=== PATIENT | female | born 1955 | race Caucasian/White ===

== ENCOUNTER → 2018-01-22 07:00 | Outpatient (CLI) | payer OTHER, SELFPAY ==
--- NOTE | 2018-01-22 06:58 | HPBI_ITS ---
MAMMOGRAPHY - BILATERAL SCREENING REASON FOR EXAM: Female, 62 years old. Routine annual screening examination. PERTINENT HISTORY: Non-contributory. TECHNIQUE: Digital bilateral breast qi (3D mammographic acquisition) in the CC and MLO projections. 2-D mediolateral oblique (MLO) and craniocaudad (CC) views of both breasts were obtained. CAD: Full Field Digital Mammography with Computer Added Detection was performed. COMPARISON: Comparison is made with prior abdomen examination dated January 21, 2017. FINDINGS: Breast Composition: There are scattered areas of fibroglandular density. There are no dominant masses or suspicious calcifications. There is a stable 1 cm x 0.9 cm nodule in the retroareolar region of the right breast. There is also evidence of a stable 4.6 mm x 1.2 mm nodule in the upper outer aspect of the right breast. Stable benign-appearing bilateral axillary lymph nodes. No other significant abnormalities are identified. There has been no significant change since the prior study. HPBI/SCREENING MAMM (CAD), BILAT IMPRESSION: Stable bilateral screening mammogram. Yearly follow-up mammogram recommended. (A) ASSESSMENT CATEGORY: BIRADS Category 2: Benign. A letter regarding these results will be sent to the patient by the facility within 30 days. Approximately 10% of breast cancers are not detected by mammography. A normal mammogram should not delay biopsy of a clinically suspicious abnormality. [id number] Electronically Signed: Vin Cota MD at 8:33 EDT Tel [phone], Service support ,
== END ==
PROVIDERS: Visit Provider Nurse Practitioner Women's Health
DX: Z12.31 Encounter for screening mammogram for malignant neoplasm of breast (principal)
CPT/HCPCS: 77063; 77067

== ENCOUNTER → 2018-01-22 15:55 | Outpatient (CLI) | payer OTHER, SELFPAY ==
[2018-01-26 06:23] LABS: HPV APTIMA, High Risk Negative (Negative)
== END ==
PROVIDERS: Visit Provider Nurse Practitioner Women's Health
DX: Z12.4 Encounter for screening for malignant neoplasm of cervix (principal)
CPT/HCPCS: 88175; G0145

== ENCOUNTER → 2019-01-27 07:20 | Outpatient (CLI) | payer OTHER, SELFPAY ==
--- NOTE | 2019-01-27 07:25 | BI_ITS ---
MAMMOGRAPHY - BILATERAL SCREENING 3-D LYNDSAY SYNTHESIS REASON FOR EXAM: Female, 63 years old. Bilateral Screening 3-D tomosynthesis PERTINENT HISTORY: History of benign biopsy in 1999.. TECHNIQUE: 2-D mammograms and 3-D Lyndsay synthesis of the breast (s) were performed. CAD was performed. COMPARISON: January 22, 2018, January 21, 2017 FINDINGS: The breast composition is almost entirely fat. Scattered benign calcifications are seen. There are stable normal-appearing lymph nodes. No dense spiculated masses or suspicious microcalcifications are identified. No architectural distortion is identified. There is no skin thickening or retraction. There has been no significant change since the prior study. BI/SCREENING MAMM (CAD), BILAT IMPRESSION: No mammographic signs of malignancy. Routine yearly mammograms recommended. ASSESSMENT CATEGORY: BIRADS Category 2: Benign. A letter regarding these results will be sent to the patient by the facility within 30 days. FOLLOW UP RECOMMENDATION: Yearly follow up mammogram recommended. (A) Approximately 10% of breast cancers are not detected by mammography. A normal mammogram should not delay biopsy of a clinically suspicious abnormality. Electronically Signed: Stephan Welsh MD at 17:43 EDT , Service support ,
== END ==
PROVIDERS: Visit Provider Nurse Practitioner Women's Health
DX: Z12.31 Encounter for screening mammogram for malignant neoplasm of breast (principal)
CPT/HCPCS: 77063; 77067

== ENCOUNTER → 2019-10-07 10:15 | Outpatient (CLI) | payer OTHER, SELFPAY ==
[2019-10-02 14:27] VITALS: BMI 25.1
[2019-10-07 11:14] LABS: Absolute Lymphocyte Count 2.38 X10^3/uL (0.83-4.51); Absolute Neutrophil Count 3.5 X10^3/uL (2.0-7.7); Basophil# 0.04 X10^3/uL; Basophil% 0.6 % (0-1); Eosinophil# 0.18 X10^3/uL; Eosinophils% 2.7 % (0-5); Hematocrit 43.6 % (37-47); Hemoglobin 14.3 g/dL (12.0-15.0); Lymphocyte # 2.38 X10^3/ul (4.0); Lymphocyte % 35.7 % (19-41); Mean Corp Hgb Conc 32.8 g/dL (32-36); Mean Corpuscular Hgb 29.1 pg (27.0-32.0); Mean Corpuscular Volume 88.6 fL (81-99); Mean Platelet Vol. 9.5 fl (6.2-12.0); Monocyte# 0.52 X10^3/uL; Monocyte% 7.8 % (0-10); NRBC Flagged by Analyzer 0 % (0-5); Neutrophil # 3.52 X10^3/uL (2.7-7.7); Neutrophil % 52.9 % (47-70); Platelet Count 308 K/mm3 (150-450); RBC Distribution Width CV 12.5 % (11.6-14.6); Red Blood Count 4.92 M/mm3 (4.2-5.4); White Blood Count 6.7 K/mm3 (4.4-11.0)
[2019-10-07 11:43] LABS: AST(SGOT) 17 U/L (15-37); Alanine Aminotransfer ALT/SGPT 21 U/L (13-56); Albumin, Serum 3.8 g/dL (3.2-5.0); Alkaline Phosphatase 74 U/L (45-117); Anion Gap 3 (5-15); BUN 15 mg/dL (7-18); BUN/Creat Ratio 19.3 RATIO (10-20); Calcium,Total 8.8 mg/dL (8.5-10.1); Chloride 105 mmol/L (98-107); Cholesterol 171 mg/dL (200); Creatinine, Serum 0.78 mg/dL (0.55-1.02); EST Glomerular Filtration Rate 80 mL/min (>60); Est Glom Filt Rate - Afr Amer 96 mL/min (>60); Globulin 3.7 g/dL (2.2-4.2); Glucose 88 mg/dL (74-106); High Density Lipoprotein 50 mg/dL; Potassium 3.7 mmol/L (3.5-5.1); Protein, Total 7.5 g/dL (6.4-8.2); Sodium Level 140 mmol/L (136-145); Triglycerides 97 mg/dL; Very Low Density Lipoprotein 19 mg/dL (5-40)
== END ==
PROVIDERS: Family Provider Internal Medicine; PCP Internal Medicine; Referring Provider Internal Medicine; Visit Provider Internal Medicine
DX: Z00.00 Encounter for general adult medical examination without abnormal findings (principal)
CPT/HCPCS: 36415; 80053; 80061; 85025

== ENCOUNTER 2019-10-21 08:02 | Day surgery (SDC) | payer OTHER, SELFPAY ==
[2019-10-02 14:27] VITALS: BMI 25.1
[2019-10-21 08:23] VITALS: BP 137/78; PULSE 59; RESP 16; TEMP 36.1; O2SAT 100; BMI 24.1
--- NOTE | 2019-10-21 08:26 | HP.PCM_ITS ---
History of Present Illness Date of Admission: 10/21/19 The patient is a 64 year old F presents for screening colonoscopy. Patient's last colonoscopy was 12 years ago and was negative by Dr. Hall. Patient states she has bowel movements almost every day denies any blood. Denies any chronic abdominal pain/nausea/vomiting/reflux. Patient denies any family history of colon cancer. Past Medical/Surgical History - Planned Operation Planned Operative Procedure/s: cscope open access Date of Operative Procedure: 10/21/19 Permit Signed: No S.O.S: No Is This Patient Having a Total Joint: No - Previous Hospitalizations/Surgeries HX Hospitalizations: No HX of Surgeries: cscope Any Problems With Anesthesia: Yes - slow to awaken You/Your Family Experience Fever (Hyperthermia) With Anes: No Cholinesterase deficiency: No - Cardiovascular Hx Chest Pain within Last 2 months: No Hx of Irregular Heartbeat and/or Afib: No Hx Heart Attack: No Hx Congestive Heart Failure: No Hx Rheumatic Fever: No Hx Hypertension: No Hx Internal Defibrillator: No Hx Pacemaker: No Hx Cardiac Catheterization: No Hx Cardiac Surgery/Stents/Etc.: No Hx Stress Test: No HX Edema: No Hx Pain in Legs when Walking/Leg Cramps: No - Respiratory Chronic Cough: No HX of Shortness of Breath: No Hoarseness: No Hx Chronic Obstructive Pulmonary Disease (COPD): No Hx Asthma: No Hx Emphysema: No Hx Sleep Apnea: No Hx Oxygen Use at Home: No Hx Respiratory Tract Infection/Cold (presently): No Do You Snore Loudly (louder than talking or can be heard): No Do You Often Feel Tired/ Fatigued/ Sleepy Dring Daytime?: No Has Anyone Observed You Stop Breathing During Sleep?: No Result (for STOP score): Negative Hx Smoking: No Smoking Status: Never smoker - Gastrointestinal Hx Gastroesophageal Reflux: No Hx Gastrointestinal Disorders: No Hx Gastrointestinal Bleed: No Hx Ulcer: No Hx Hiatal Hernia: No Difficulty Chewing/Swallowing: No Recent Onset of Swallowing Problems: No Special diet followed at home: No Hx Unplanned Weight Loss of 20#: No HX Unplanned Weight Gain of 20#: No - Neurological Hx Seizures: No HX Syncope/Blackout Spells/Unconsciousness: No Hx CVA/Stroke: No Hx Transient Ischemic Attacks (TIA): No Hx Multiple Sclerosis: No Hx Parkinson's Disease: No Hx Head/Neck Injury: No Hx Headaches: No Hx Back Injury/Pain: No Recent Onset of Speech Difficulty: No Restless Legs: No Does patient have nerve stimulator: No Patient instructed to have device shut off: No Rep notified?: No - Blood Disorder Hx Leukemia: No Bleeding Tendencies: No Hx Deep Vein Thrombosis: No Hx High Cholesterol: No Blood Transmitted Disease: No Hx Hepatitis: No Hx Cirrhosis: No Hx Anemia: No Hx Blood Disorders: No - Reproduction : No Is Patient Lactating: No Hx Hysterectomy: No Hx Tubal Ligation: No Are You Post Menopause: Yes - Genitourinary Hx Renal Disease: No - Musculoskeletal Hx Arthritis: No Hx Rheumatoid Arthritis: No Hx Gout: No Recent Onset of an Orthopedic Problem: No - Endocrine Hx Diabetes: No Thyroid Disease: No Hx Steroid Therapy: No - Psycho/Social Hx Substance Use: No Hx Alcohol Use: No Hx Anxiety: No Hx Depression: No Mental Illness: No Hx Dementia: No - Miscellaneous Hx Cancer: No Recent Exposure to Contagious Disease: No Active MRSA: No Hx of C-Diff: No Any Loose Teeth: No Allergies No Known Allergies Allergy (Verified 10/20/19 13:33) - Discharge Is Pt Admitted From a Skilled Nursing, or a Intermediate: No Who Could Help: family After D/C, Where Do you Plan to Go: Return Home - Physical Exam Vitals/I&O's: Body Mass Index (BMI) 25.1 General: Alert, Oriented x3, Cooperative, No apparent distress HEENT: Atraumatic Lungs: Normal air movement Cardiovascular: Regular rate Abdomen: Soft, Non Tender, Non-Distended Extremities: No clubbing, No cyanosis, No edema Neurological: Cranial nerves II-XII grossly intact Psych/Mental Status: Normal Affect Assessment/Plan 64-year-old female for screening for colon cancer Surgery Risks - Colonoscopy I discussed with the patient the risks of the procedure: Yes Risks Include but are not Limited To: Risks include but are not limited to: Bleeding, perforation requiring further surgery, inability to complete colonoscopy requiring barium enema. Patient no further questions this time.
[2019-10-21] MEDS: Lactated Ringers 1,000 ML 100 ML IV (08:40)
--- NOTE | 2019-10-21 09:15 | COLBX_PTH ---
PATIENT: MEMO SOUTH LOC: EN U#:[id number] AGE/SX: 64/F ROOM: RE10/21/[address]: Dr. Carina Diego MD : 1955 BED: DIS: 10/21/2019 SPEC #: [id number] RECD: 10/21/19 10:51 STATUS: ARNAUD REQ #: [id number] MARCELLO: 10/21/19 09:[address]: Carina Diego DEPT: SURGICAL PATHOLOGY RECD BY: Tl Walker ENTERED: 10/21/19 13:43 SP TYPE: COLON BX OTHR DR: Dr. Kathryn Darby MD Tissues: Rectum, NOS Procedures: Surgery Specimen Level IV HEADER OPERATION: Colonoscopy - open access (MAC) PRE-OP DIAGNOSIS: Screening TISSUE SUBMITTED: Rectal polyps MICROSCOPIC DIAGNOSIS Rectal polyps, biopsy: Fragments of hyperplastic polyp. AM:chey 10/22/19 MICROSCOPIC DESCRIPTION Slides are reviewed. GROSS DESCRIPTION Received in fixative is one container labeled with the patient's name and designated rectal polyp. The specimen consists of multiple irregular fragments of light rice soft tissue that in aggregate measure 0.5 x 0.5 x 0.1 cm. The specimen is totally submitted in one cassette. / SJ:chey 10/21/19 TC:5 CPT: 29413
[2019-10-21 09:55] VITALS: BP 100/70; BP 94/64; PULSE 81; RESP 16; TEMP 36.4; O2SAT 98
--- NOTE | 2019-10-21 09:55 | OP.COLON_ITS ---
Patient Name: Bailey Gerardo Procedure Date: 10/21/2019 9:19 AM Date of : 1955 Age: 64 Procedure: Colonoscopy Indications: Screening for colorectal malignant neoplasm Providers: Carina Diego MD Referring MD: Kathryn Darby MD Medicines: Monitored Anesthesia Care Patient Profile: This is a 64 year old female. Last Colonoscopy: more than 10 years ago. Complications: No immediate complications. Procedure: Pre-Anesthesia Assessment: - Prior to the procedure, a History and Physical was performed, and patient medications and allergies were reviewed. The patient's tolerance of previous anesthesia was also reviewed. The risks and benefits of the procedure and the sedation options and risks were discussed with the patient. All questions were answered, and informed consent was obtained. Prior Anticoagulants: The patient has taken no previous anticoagulant or antiplatelet agents. ASA Grade Assessment: II - A patient with mild systemic disease. After reviewing the risks and benefits, the patient was deemed in satisfactory condition to undergo the procedure. After I obtained informed consent, the scope was passed under direct vision. Throughout the procedure, the patient's blood pressure, pulse, and oxygen saturations were monitored continuously. The colonoscope was introduced through the anus and advanced to the cecum, identified by appendiceal orifice and ileocecal valve. The colonoscopy was performed without difficulty. The patient tolerated the procedure well. The quality of the bowel preparation was good. Scope In: 9:31:21 AM Scope Withdrawal Time 0 hours 11 minutes 20 seconds Scope Out: 9:49:19 AM Total Procedure Duration Time 0 hours 17 minutes 58 seconds Findings: Hemorrhoids were found on perianal exam. A less than 5 mm polyp was found in the rectum. The polyp was semi-sessile. The polyp was removed with a hot snare. Resection and retrieval were complete. A less than 5 mm polyp was found in the rectum. The polyp was sessile. The polyp was removed with a cold biopsy forceps. Resection and retrieval were complete. External and internal hemorrhoids were found during retroflexion and during perianal exam. The hemorrhoids were Grade I (internal hemorrhoids that do not prolapse). The exam was otherwise without abnormality. Impression: - Hemorrhoids found on perianal exam. - One less than 5 mm polyp in the rectum, removed with a hot snare. Resected and retrieved. - One less than 5 mm polyp in the rectum, removed with a cold biopsy forceps. Resected and retrieved. - External and internal hemorrhoids. - The examination was otherwise normal. Recommendation: - Discharge patient to home. - Resume previous diet. - Continue present medications. - Await pathology results. - Repeat colonoscopy in 5-10 years for surveillance based on pathology results. Procedure Code(s): --- Professional --- 70247, PT, Colonoscopy, flexible; with removal of tumor(s), polyp(s), or other lesion(s) by snare technique 93965, 59, Colonoscopy, flexible; with biopsy, single or multiple Diagnosis Code(s): --- Professional --- Z12.11, Encounter for screening for malignant neoplasm of colon K64.0, First degree hemorrhoids K62.1, Rectal polyp CPT copyright 2017 [employer]. All rights reserved. The codes documented in this report are preliminary and upon ram car operator review may be revised to meet current compliance requirements. MD Carina Hill MD 10/21/2019 9:54:41 AM This report has been signed electronically. Number of Addenda: 0 Note Initiated On: 10/21/2019 9:19 AM
[2019-10-21 10:00] VITALS: BP 100/70; BP 91/59; PULSE 72; RESP 16; O2SAT 99
[2019-10-21 10:05] VITALS: BP 100/70; BP 95/62; PULSE 70; RESP 16; O2SAT 99
[2019-10-21 10:10] VITALS: BP 100/70; BP 99/61; PULSE 56; RESP 16; TEMP 36.5; O2SAT 99
[2019-10-21 10:33] VITALS: BP 100/70
== END 2019-10-21 10:42 | disposition home or self-care (01) ==
LOC: EN 08:03 → AC 08:04
PROVIDERS: Family Provider Internal Medicine; PCP Internal Medicine; Referring Provider Internal Medicine; Visit Provider Surgery
PROC: 0DJD8ZZ Inspection of Lower Intestinal Tract, Via Natural or Artificial Opening Endoscopic (ICD-10-PCS; CPT 45378; principal; 2019-10-21 09:10)
DX: Z12.11 Encounter for screening for malignant neoplasm of colon (principal); K64.0 First degree hemorrhoids; K64.4 Residual hemorrhoidal skin tags; K62.1 Rectal polyp
CPT/HCPCS: 45380; 45385; 88305; J7120

== ENCOUNTER → 2020-02-01 07:46 | Outpatient (CLI) | payer OTHER, SELFPAY ==
--- NOTE | 2020-02-01 07:47 | BI_ITS ---
MAMMOGRAPHY - BILATERAL SCREENING REASON FOR EXAM: Female, 64 years old. Routine annual screening examination. PERTINENT HISTORY: Non-contributory. TECHNIQUE: Digital bilateral breast lyndsay (3D mammographic acquisition) in the CC and MLO projections. 2-D mediolateral oblique (MLO) and craniocaudad (CC) views of both breasts were obtained. CAD: Full Field Digital Mammography with Computer Added Detection was performed. COMPARISON: Comparison is made with prior examination dated January 27, 2019 and January 22, 2018. FINDINGS: Breast Composition: There are scattered areas of fibroglandular density. There are no dominant masses or suspicious calcifications. Stable benign-appearing bilateral axillary lymph nodes. Stable 8mm by 8mm well-defined nodule in the retroareolar region of the right breast. No other significant abnormalities are identified. There has been no significant change since the prior study. BI/SCREEN MAMM (CAD) W/LYNDSAY BILAT IMPRESSION: Stable bilateral screening mammogram. Correlation with ultrasound of the 8 mm nodule in the retroareolar region of the right breast recommended. ASSESSMENT CATEGORY: BIRADS Category 0: Incomplete. Need additional imaging evaluation. A letter regarding these results will be sent to the patient by the facility within 30 days. Approximately 10% of breast cancers are not detected by mammography. A normal mammogram should not delay biopsy of a clinically suspicious abnormality. [id number] Electronically Signed: Vin Cota, at 8:43 EDT , Service support ,
== END ==
PROVIDERS: Family Provider Internal Medicine; PCP Internal Medicine; Referring Provider Nurse Practitioner Women's Health; Visit Provider Nurse Practitioner Women's Health
DX: Z12.31 Encounter for screening mammogram for malignant neoplasm of breast (principal)
CPT/HCPCS: 77063; 77067

== ENCOUNTER → 2020-02-05 08:59 | Outpatient (CLI) | payer OTHER, SELFPAY ==
--- NOTE | 2020-02-05 09:00 | US_ITS ---
STUDY: ULTRASOUND BREAST - RIGHT REASON FOR EXAM: Female, 64 years old. Abnormal screening mammogram. TECHNIQUE: Axial and longitudinal images of the RIGHT breast were performed with a high resolution ultrasound transducer. # OF IMAGES: 11 COMPARISON: Comparison is made with prior mammogram dated February 01, 2020. FINDINGS: RIGHT Breast: The mammographic abnormality corresponds to a 6 mm x 8 mm x 5 mm hypoechoic slightly irregular nodule at the 9:00 position of the breast at 3 cm from the nipple. A biopsy is recommended for further evaluation. US/Breast Limited Unilateral IMPRESSION: 6 mm x 8 mm x 5 mm hypoechoic slightly irregular nodule at the 9:00 position of the breast at 3 cm from nipple. A biopsy is recommended. ASSESSMENT CATEGORY: BIRADS Category 4: Suspicious - Biopsy Should Be Considered. A letter regarding these results will be sent to the patient by the facility within 30 days. Electronically Signed: Vin Cota, at 11:52 EDT , Service support ,
== END ==
PROVIDERS: PCP Internal Medicine; Referring Provider Nurse Practitioner Women's Health; Visit Provider Nurse Practitioner Women's Health
DX: N63.13 Unspecified lump in the right breast, lower outer quadrant (principal); N63.11 Unspecified lump in the right breast, upper outer quadrant
CPT/HCPCS: 76642

== ENCOUNTER → 2020-02-16 10:37 | Outpatient (CLI) | payer OTHER, SELFPAY ==
[2020-02-12 08:03] VITALS: BMI 24.1
--- NOTE | 2020-02-16 | BRBX_PTH ---
PATIENT: MEMO SOUTH LOC: [facility] U#:[id number] AGE/SX: 70/F ROOM: RE02/16/[address]: Dr. Richard Hall MD : 1955 BED: DIS: SPEC #: [id number] RECD: 02/16/20 12:58 STATUS: ARNAUD REBhaskar #: [id number] MARCELLO: 02/16/20 00:[address]: Richard Hall DEPT: SURGICAL PATHOLOGY RECD BY: Waqas Brody ENTERED: 02/16/20 12:59 SP TYPE: BREAST BX OTHR DR: Dr. 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 Negative for malignancy. See comment. ANGELIC:chey 02/17/20 COMMENT Correlation with clinical, radiologic findings and appropriate follow up are necessary. This case has been reviewed in consultation with Dr. Meza who concurs with the above diagnosis. MICROSCOPIC DESCRIPTION Slides are reviewed. GROSS DESCRIPTION Received in fixative is one container labeled with the patient's name and designated ultrasound-guided right breast biopsy, 9 o'clock +3. The specimen consists of multiple elongated fragments of rice-yellow fibroadipose tissue that in aggregate measure 2.5 x 1 x 0.1 cm. The entire specimen is submitted in one cassette. / ANGELIC:chey 02/16/20 TC:5 CPT: 36985
--- NOTE | 2020-02-16 10:38 | US_ITS ---
STUDY: ULTRASOUND BREAST - RIGHT REASON FOR EXAM: Female, 64 years old. Ultrasound guided right breast biopsy. TECHNIQUE: Axial and longitudinal images of the RIGHT breast were performed with a high resolution ultrasound transducer. # OF IMAGES: 22 COMPARISON: Comparison is made with prior sonogram of the right breast dated February 05, 2020. FINDINGS: RIGHT Breast: Under direct sonographic guidance, the surgeon performed multiple core biopsies of the 6 mm x 7 mm x 5 mm hypoechoic nodular density at the 9:00 position of the breast at 3 cm from nipple. US/US Breast Biopsy 1st Lesion IMPRESSION: Ultrasound guided biopsy of the nodular density at the 9:00 position of the breast at 3 cm from nipple. ASSESSMENT CATEGORY: BIRADS Category 2: Benign. A letter regarding these results will be sent to the patient by the facility within 30 days. Electronically Signed: Vin Cota, at 13:16 EDT , Service support ,
--- NOTE | 2020-02-16 11:22 | BI_ITS ---
MAMMOGRAPHY - UNILATERAL DIAGNOSTIC: RIGHT BREAST REASON FOR EXAM: Female, 64 years old. Clip present. PERTINENT HISTORY: Status post right ultrasound-guided breast biopsy. TECHNIQUE: Digital unilateral breast qi (3D mammographic acquisition) in the CC and MLO projections. 2-D mediolateral oblique (MLO) and craniocaudad (CC) views of both breasts were obtained. CAD: Full Field Digital Mammography with Computer Added Detection was performed. COMPARISON: Comparison is made with prior mammogram dated February 01, 2020 and prior sonogram dated February 05, 2020. FINDINGS: Breast Composition: There are scattered areas of fibroglandular density. A tissue clip marker is seen in the nodular density in the retroareolar region of the right breast. No other significant abnormalities are identified. BI/DIAG MAMM W/CAD, UNILAT IMPRESSION: Tissue clip marker following ultrasound-guided biopsy in the nodular density in the retroareolar region of the right breast. ASSESSMENT CATEGORY: BIRADS Category 2: Benign. A letter regarding these results will be sent to the patient by the facility within 30 days. Approximately 10% of breast cancers are not detected by mammography. A normal mammogram should not delay biopsy of a clinically suspicious abnormality. Electronically Signed: Vin Cota, at 12:59 EDT , Service support ,
--- NOTE | 2020-02-16 13:25 | PCM.OPRPT ---
Problem List (1) Abnormal mammogram of right breast Status: Acute Report of Operation Date of Procedure: 02/16/20 Pre-Operative Diagnosis: Abnormal mammogram right Post-Operative Diagnosis: Same Surgery/Procedure Performed:: Ultrasound-guided handheld mammotome breast biopsy right breast Type of Anesthesia:: Local Description of Procedure: Ultrasound of the right breast at approximately the 10 o'clock position revealed the lesion in question. I prepped the breast with chlorhexidine. I injected 1% lidocaine plain. Under ultrasound guidance I injected local posterior to the lesion. A skin susan was made. Under ultrasound guidance the hand-held mammotome needle was directed posterior to the lesion. Under ultrasound guidance numerous biopsies were obtained. Under ultrasound guidance a small titanium clip was placed. Sterile dressings were applied. Patient tolerated the procedure well. Postoperative mammogram was obtained. - Admit VTE Documentation VTE Present on Admission: No VTE Mechan Device Prophylaxis: None VTE Pharm Prophylaxis ordered?: No Reason prophylaxis not ordered:: Treatment Not Indicated [id number]: [id number] Bx breast 1st lesion us imag
== END ==
LOC: OPUS 10:38 → LABSPEC 11:51
PROVIDERS: PCP Internal Medicine; Referring Provider Surgery; Visit Provider Surgery
DX: D24.1 Benign neoplasm of right breast (principal); N62 Hypertrophy of breast
CPT/HCPCS: 19083; 77065; 88305

== ENCOUNTER → 2020-08-23 | Outpatient (CLI) | payer OTHER, SELFPAY ==
[2020-04-27 09:17] VITALS: BMI 24.1
--- NOTE | 2020-08-23 08:50 | BI_ITS ---
MAMMOGRAPHY - UNILATERAL DIAGNOSTIC: RIGHT BREAST REASON FOR EXAM: Female, 65 years old. Six-month follow-up from right ultrasound-guided breast biopsy. PERTINENT HISTORY: Non-contributory. TECHNIQUE: Digital unilateral breast qi (3D mammographic acquisition) in the CC and MLO projections. 2-D mediolateral oblique (MLO) and craniocaudad (CC) views of both breasts were obtained. CAD: Full Field Digital Mammography with Computer Added Detection was performed. COMPARISON: Comparison is made with prior examination dated 02/16/2020 and 02/01/2020. FINDINGS: Breast Composition: There are scattered areas of fibroglandular density. There are no dominant masses or suspicious calcifications. Once again, a tissue clip marker is seen in the slightly inferior retroareolar region of the right breast. Stable small benign-appearing right axillary lymph node. No other significant abnormalities are identified. There has been no significant change since the prior study. BI/DIAG MAMM W/CAD, UNILAT IMPRESSION: Stable unilateral diagnostic mammogram. One year follow-up mammogram recommended. (A) ASSESSMENT CATEGORY: BIRADS Category 2: Benign. A letter regarding these results will be sent to the patient by the facility within 30 days. Approximately 10% of breast cancers are not detected by mammography. A normal mammogram should not delay biopsy of a clinically suspicious abnormality. Electronically Signed: Vin Cota, at 11:18 EDT , Service support ,
--- NOTE | 2020-08-23 08:55 | BD_ITS ---
STUDY: DUAL ENERGY X-RAY ABSORPTIOMETRY / DXA REASON FOR EXAM: Female, 65 years old. 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 COMPARISON: None. FINDINGS: Lumbar Spine (L1-L4): g/cm2 (1.030) / T-score (-1.2) / Z-score (0.3) Findings are suggestive of osteopenia with a low fracture risk. Left Femur Total: g/cm2 (0.805) / T-score (-1.6) / Z-score (-0.5) Left Femoral Neck: g/cm2 (0.798) / T-score (-1.7) / Z-score (-0.3) Right Femur Total: g/cm2 (0.756) / T-score (-2.0) / Z-score (-0.9) Right Femoral Neck: g/cm2 (0.747) / T-score (-2.1) / Z-score (-0.7) BD/Dexa Bone Density Study IMPRESSION: The patient is considered osteopenic as outlined below according to World Quinn Organization (WHO) criteria with a high fracture risk. Reference Information: The T-score is the number of standard deviations above or below the standard which is normal for young adults at their peak bone mineral density. The World Health Organization (WHO) interprets the T-scores as follows: Above -1 Normal bone density Between -1 and -2.5 Osteopenia Equal to / or below -2.5 Osteoporosis As a practical clinical guideline, osteopenia may be graded as follows: Mild -1 through -1.5 Moderate -1.6 through -2.0 Severe -2.1 through -2.4 The Z-score is the number of standard deviations above or below age-matched controls. A Z-score of less than -1.5 would be considered abnormal. References: 1. NIH Osteoporosis and Related Bone Diseases www osteo.org 2. International Society for Clinical Densitometry www iscd.org 3. National Osteoporosis Foundation www nof.org Electronically Signed: Vin Cota, at 15:50 EDT , Service support ,
== END | disposition home or self-care (01) ==
PROVIDERS: PCP Internal Medicine; Referring Provider Nurse Practitioner Women's Health; Visit Provider Surgery
DX: Z78.0 Asymptomatic menopausal state (principal); M85.80 Other specified disorders of bone density and structure, unspecified site; Z98.890 Other specified postprocedural states
CPT/HCPCS: 77061; 77065; 77080; G0279

== ENCOUNTER → 2021-05-02 12:32 | Outpatient (CLI) | payer OTHER, SELFPAY ==
[2020-04-27 09:17] VITALS: BMI 24.1
--- NOTE | 2021-05-02 12:33 | BI_ITS ---
MAMMOGRAPHY - BILATERAL SCREENING 3-D TOMOSYNTHESIS REASON FOR EXAM: Female, 65 years old. Annual screening mammogram. 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 TECHNIQUE: 2-D mammograms and 3-D Tomosynthesis of the breast (s) were performed. CAD was performed. COMPARISON: 08/23/2020, 02/16/2020. FINDINGS: The breast composition is composed of scattered fibroglandular density. Scattered benign calcifications are seen. No dense spiculated masses or suspicious microcalcifications are identified. No architectural distortion is identified. There is no skin thickening or retraction. Stable lymph nodes. Tissue clip marker in the right breast. There has been no significant change since the prior study. BI/SCRN MAMM (CAD)W/LYNDSAY BILAT IMPRESSION: No mammographic signs of malignancy. Routine yearly mammograms recommended. ASSESSMENT CATEGORY: BIRADS Category 2: Benign. A letter regarding these results will be sent to the patient by the facility within 30 days. FOLLOW UP RECOMMENDATION: Yearly follow up mammogram recommended. (A) Approximately 10% of breast cancers are not detected by mammography. A normal mammogram should not delay biopsy of a clinically suspicious abnormality. Electronically Signed: Stephan Welsh MD at 14:51 EDT , Service support ,
== END ==
PROVIDERS: PCP Internal Medicine; Referring Provider Nurse Practitioner Women's Health; Visit Provider Nurse Practitioner Women's Health
DX: Z12.31 Encounter for screening mammogram for malignant neoplasm of breast (principal)
CPT/HCPCS: 77063; 77067

== ENCOUNTER → 2022-05-29 | Outpatient (CLI) | payer MEDICARE, SELFPAY ==
--- NOTE | 2022-05-29 07:59 | BI_ITS ---
MAMMOGRAPHY - BILATERAL SCREENING REASON FOR EXAM: Female, 66 years old. Routine annual screening examination. PERTINENT HISTORY: Non-contributory. TECHNIQUE: Digital bilateral breast lyndsay (3D mammographic acquisition) in the CC and MLO projections. 2-D mediolateral oblique (MLO) and craniocaudad (CC) views of both breasts were obtained. CAD: Full Field Digital Mammography with Computer Added Detection was performed. COMPARISON: Comparison is made with prior study dated 05/02/2021 and 08/23/2020. FINDINGS: Breast Composition: There are scattered areas of fibroglandular density. There are no dominant masses or suspicious calcifications. A tissue clip marker is once again seen in the retroareolar region of the right breast in the tiny linear density. This is unchanged. Stable small benign-appearing bilateral axillary lymph nodes. No other significant abnormalities are identified. There has been no significant change since the prior study. BI/SCRN MAMM (CAD)W/LYNDSAY BILAT IMPRESSION: Stable bilateral screening mammogram. Yearly follow-up mammogram recommended. (A) ASSESSMENT CATEGORY: BIRADS Category 2: Benign. A letter regarding these results will be sent to the patient by the facility within 30 days. Approximately 10% of breast cancers are not detected by mammography. A normal mammogram should not delay biopsy of a clinically suspicious abnormality. [id number] Electronically Signed: Vin Cota MD at 8:51 EDT ,
== END | disposition home or self-care (01) ==
PROVIDERS: PCP Internal Medicine; Visit Provider Nurse Practitioner Women's Health
DX: Z12.31 Encounter for screening mammogram for malignant neoplasm of breast (principal)
CPT/HCPCS: 77063; 77067

== ENCOUNTER → 2023-06-06 | Outpatient (CLI) | payer MEDICARE, SELFPAY ==
--- NOTE | 2023-06-06 07:56 | BI_ITS ---
MAMMOGRAPHY - BILATERAL SCREENING REASON FOR EXAM: Female, 67 years old. Routine annual screening examination. PERTINENT HISTORY: Non-contributory. TECHNIQUE: Digital bilateral breast lyndsay (3D mammographic acquisition) in the CC and MLO projections. 2-D mediolateral oblique (MLO) and craniocaudad (CC) views of both breasts were obtained. CAD: Full Field Digital Mammography with Computer Added Detection was performed. COMPARISON: Comparison is made with prior study dated May 29, 2022 and May 02, 2021. FINDINGS: Breast Composition: There are scattered areas of fibroglandular density. There are no dominant masses or suspicious calcifications. A tissue clip marker is once again seen in the retroareolar region of the right breast. This is within the tiny linear density. Stable fat containing lymph node is seen in the right axilla. No other significant abnormalities are identified. There has been no significant change since the prior study. BI/SCRN MAMM (CAD)W/LYNDSAY BILAT IMPRESSION: Stable bilateral screening mammogram. Yearly follow-up mammogram recommended. (A) ASSESSMENT CATEGORY: BIRADS Category 2: Benign. A letter regarding these results will be sent to the patient by the facility within 30 days. Approximately 10% of breast cancers are not detected by mammography. A normal mammogram should not delay biopsy of a clinically suspicious abnormality. [id number] Electronically Signed: Vin Cota MD at 8:49 EDT ,
== END | disposition home or self-care (01) ==
LOC: OPBI 07:54
PROVIDERS: PCP Internal Medicine; Referring Provider Nurse Practitioner Women's Health; Visit Provider Nurse Practitioner Women's Health
DX: Z12.31 Encounter for screening mammogram for malignant neoplasm of breast (principal)
CPT/HCPCS: 77063; 77067

== ENCOUNTER → 2023-07-09 | Outpatient (CLI) | payer MEDICARE, SELFPAY ==
--- NOTE | 2023-07-09 12:51 | BD_ITS ---
STUDY: DUAL ENERGY X-RAY ABSORPTIOMETRY / DXA REASON FOR EXAM: Female, 68 years old. Screening for osteoporosis TECHNIQUE: Bone Mineral Density (BMD) measurements of lumbar spine and bilateral hips were obtained. COMPARISON: Comparison is made with prior study dated August 23, 2020. FINDINGS: Lumbar Spine (L1-L4): g/cm2 (0.923) / T-score (-1.1) / Z-score (0.8) Findings are suggestive of osteopenia with a low fracture risk. Left Femur Total: g/cm2 (0.758) / T-score (-1.5) / Z-score (-0.2) Left Femoral Neck: g/cm2 (0.589) / T-score (-2.3) / Z-score (-0.7) Right Femur Total: g/cm2 (0.702) / T-score (-2.0) / Z-score (-0.6) Right Femoral Neck: g/cm2 (0.573) / T-score (-2.5) / Z-score (-0.9) The T-Scores on the most recent prior examination were: Lumbar Spine (L1-L4): There has been improvement of bone density since the previous examination. Left Femur Total: which represents an improvement of 1.8%. Right Femur Total: which represents an improvement of 0.8%. BD/Dexa Bone Density Study IMPRESSION: The patient is considered osteopenic as outlined below according to World Quinn Organization (WHO) criteria with a high fracture risk. There has been improvement of bone density since the previous examination. Reference Information: The T-score is the number of standard deviations above or below the standard which is normal for young adults at their peak bone mineral density. The World Health Organization (WHO) interprets the T-scores as follows: Above -1 Normal bone density Between -1 and -2.5 Osteopenia Equal to / or below -2.5 Osteoporosis As a practical clinical guideline, osteopenia may be graded as follows: Mild -1 through -1.5 Moderate -1.6 through -2.0 Severe -2.1 through -2.4 The Z-score is the number of standard deviations above or below age-matched controls. A Z-score of less than -1.5 would be considered abnormal. References: 1. NIH Osteoporosis and Related Bone Diseases www osteo.org 2. International Society for Clinical Densitometry www iscd.org 3. National Osteoporosis Foundation www nof.org Electronically Signed: Vin Cota MD at 14:39 EDT ,
--- NOTE | 2023-07-09 13:31 | EKG12_ITS ---
Test Reason : CHEST PRSSURE Blood Pressure : / mmHG Vent. Rate : 060 BPM Atrial Rate : 060 BPM P-R Int : 164 ms QRS Dur : 074 ms QT Int : 438 ms P-R-T Axes : 059 013 058 degrees QTc Int : 438 ms Normal sinus rhythm Normal ECG Confirmed by PHYLICIA SPARKS, OLE ([id number]), editor greeting card [employer] ([id number]) on 08/01/2023 2:30:32 PM Referred By: Janice Estrada Confirmed By:KORI WHATLEY MD
== END | disposition home or self-care (01) ==
LOC: OPBD 12:39
PROVIDERS: PCP Internal Medicine; Referring Provider Nurse Practitioner Women's Health; Visit Provider Nurse Practitioner Women's Health
DX: R07.9 Chest pain, unspecified (principal); M81.0 Age-related osteoporosis without current pathological fracture
CPT/HCPCS: 77080; 93005

== ENCOUNTER → 2024-06-08 | Outpatient (CLI) | payer MEDICARE, SELFPAY ==
--- NOTE | 2024-06-08 08:29 | BI_ITS ---
MAMMOGRAPHY - BILATERAL SCREENING REASON FOR EXAM: Female, 68 years old. Routine annual screening examination. PERTINENT HISTORY: Non-contributory. TECHNIQUE: Digital bilateral breast lyndsay (3D mammographic acquisition) in the CC and MLO projections. 2-D mediolateral oblique (MLO) and craniocaudad (CC) views of both breasts were obtained. CAD: Full Field Digital Mammography with Computer Added Detection was performed. COMPARISON: Comparison is made with prior study dated June 06, 2023 and May 29, 2022. FINDINGS: Breast Composition: There are scattered areas of fibroglandular density. There are no dominant masses or suspicious calcifications. A tissue clip marker is once again seen in the retroareolar region of the right breast. This is within a tiny linear density. Stable small benign-appearing bilateral axillary lymph nodes. No other significant abnormalities are identified. There has been no significant change since the prior study. BI/SCRN MAMM (CAD)W/LYNDSAY BILAT IMPRESSION: Stable bilateral screening mammogram. Yearly follow-up mammogram recommended. (A) ASSESSMENT CATEGORY: BIRADS Category 2: Benign. A letter regarding these results will be sent to the patient by the facility within 30 days. Approximately 10% of breast cancers are not detected by mammography. A normal mammogram should not delay biopsy of a clinically suspicious abnormality. [id number] Electronically Signed: Vin Cota MD at 10:07 EDT ,
== END | disposition home or self-care (01) ==
PROVIDERS: PCP Internal Medicine; Referring Provider Nurse Practitioner Women's Health; Visit Provider Nurse Practitioner Women's Health
DX: Z12.31 Encounter for screening mammogram for malignant neoplasm of breast (principal)
CPT/HCPCS: 77063; 77067

== ENCOUNTER 2024-07-18 11:49 | Emergency (ER) | payer MEDICARE, SELFPAY ==
[2024-07-18 11:49] VITALS: BP 150/103; PULSE 67; RESP 16; TEMP 35.9; O2SAT 98; BMI 25.9
--- NOTE | 2024-07-18 11:59 | EKG12_ITS ---
Test Reason : CP Blood Pressure : / mmHG Vent. Rate : 065 BPM Atrial Rate : 065 BPM P-R Int : 132 ms QRS Dur : 076 ms QT Int : 398 ms P-R-T Axes : 051 -03 043 degrees QTc Int : 413 ms Normal sinus rhythm Normal ECG Confirmed by YASMIN SPARKS, VIRI ([id number]), social media editor [employer] ([id number]) on 07/20/2024 6:32:58 AM Referred By: RODGER/RICH Confirmed By:VIRI HOFFMAN MD
--- NOTE | 2024-07-18 11:59 | RAD_ITS ---
INDICATION: chest pain EXAMINATION/TECHNIQUE: X-RAY - XR Chest 1 View COMPARISON: No relevant prior comparison study available FINDINGS: LINES/DEVICES: None. LUNGS: No consolidation, edema or effusion. No pneumothorax. MEDIASTINUM AND CARDIOVASCULAR STRUCTURES: Cardiac silhouette not enlarged. Tortuosity of the thoracic aorta. Central airways and mediastinal contour are unremarkable. BONES AND SOFT TISSUES: No demonstrated acute osseous changes. RAD/Chest 1 View (Portable) IMPRESSION: No radiographic evidence of acute cardiopulmonary disease. Electronically Signed: Jimbo Gomez MD at 12:58 EDT ,
--- NOTE | 2024-07-18 12:00 | EDS_ITS ---
HPI History of Present Illness Chief Complaint: Chest Pain Informant: patient Onset/Context/Timing Onset: Today Activity at onset: sudden Timing: Continuous Location: Left Chest and - (Left arm) Worsened By: Nothing Relieved By: Nothing Associated Symptoms: Positive for Lightheadedness; Negative for Nausea, Vomiting, Diaphoresis, Dyspnea, Cough, Fever, Acid Reflux or Palpitations Narrative Narrative: Patient presents with chest pain that began today. Patient states she has been feeling lightheaded for the past few days. Patient states that today she felt some pressure on the left side of her chest. Patient states that went down into her left arm. Patient states this started approximately 1 hour prior to arrival. Patient states that has been constant. Patient states nothing makes it better nothing makes it worse. Patient denies any nausea or vomiting. Patient denies any diaphoresis. Patient denies any shortness of breath or cough. CVD Risk Factors: Negative for Hypertension, Diabetes, Hypercholesterolemia, Family History 1' </=55 or Smoking PE Risk Factors: Negative for Recent Travel/Surgery, Recent Immobilization, Prior DVT or PE, Cancer or OCP + Smoking + >/=35 [facility] Medical History Abnormal mammogram of right breast Abnormal mammogram of right breast Hemorrhoids Osteopenia Home Medications ?Medication ?Instructions ?Recorded ?Last Taken ?Type multivitamin,pj-[id number] 1 tab PO QDAY 01/22/18 Unknown History (Complete Multivitamin tablet) calcium carbonate 500 mg PO BIDCM 10/20/19 Unknown History fexofenadine 60 mg tablet (Marie 60 mg PO BID 05/02/21 Unknown History Allergy) cholecalciferol (vitamin D3) 50 50 mcg PO DAILY 05/29/22 Unknown History mcg (2,000 unit) capsule Hydrocortisone 2.5%/lidocaine 5% #30 ea 07/09/23 Unknown Rx suppository (cmpd) (hydrocortisone 2.5%/lidocaine 5% suppository (compound)) Allergy/AdvReac Type Severity Reaction Status Date / Time No Known Allergies Allergy Verified 07/18/24 11:51 Family History Brother Cancer brain tumor Grandmother Diabetes Grandmother Diabetes Hypertension Heart disease Mother Arthritis Surgical History H/O blepharoplasty History of breast biopsy Social History current occupational status: retired current occupation: Retired Smoking Status: Never smoker alcohol intake: never substance use type: does not use caffeine: Yes what type of physical activity do you participate in: walking and weight training frequency: 5-6 times per week seatbelt use: always do you feel safe at home: Yes additional social history: [place] Seasonal at [facility]-lives there is summer ROS ROS ED Constitutional Constitutional ED: Denies chills or fever(s) Eyes Eyes: Denies blurry vision or change in vision ENT ENT ED: Denies rhinorrhea or sore throat Cardiovascular Cardiovascular: Reports chest pain; Denies palpitations Respiratory/Chest Respiratory/Chest: Denies cough or dyspnea Gastrointestinal Gastrointestinal: Denies nausea or vomiting Genitourinary Genitourinary ED: Denies dysuria or hematuria Musculoskeletal Musculoskeletal: Reports back pain; Denies neck pain Integumentary Denies abscess or rash Neurologic Neurologic: Denies headache(s) or weakness Allergic/Immunologic Allergic/Immunologic ED: Denies mouth swelling or urticaria EXAM Physical Exam Const Vital Signs: 07/18/24 11:49 07/18/24 12:07 07/18/24 13:13 Temperature 96.7 F L Temperature Source Temporal Pulse Rate 67 59 L Respiratory Rate 16 13 Blood Pressure 150/103 H 130/79 H Blood Pressure Mean 118 96 Pulse Ox 98 95 95 Oxygen Delivery Method Room Air Room Air 07/18/24 14:00 07/18/24 15:00 Temperature Temperature Source Pulse Rate 59 L 60 Respiratory Rate 18 12 Blood Pressure 127/82 H 126/83 H Blood Pressure Mean 97 97 Pulse Ox 98 96 Oxygen Delivery Method Positive well nourished and well developed General Appearance ED: well developed and NAD HEENT Reports moist mucous membranes Neck supple and no JVD Resp normal respiratory effort and clear to auscultation bilaterally Cardio regular rate and regular rhythm GI soft to palpation, non-tender and non-distended Neuro oriented x3, CN's II-XII intact bilaterally and no sensory deficits noted Sensorium / Orientation: awake and alert Motor Exam: strength 5/5 throughout Psych mental status grossly normal Heart Score History: Slightly/Non-Suspicious ECG: Normal Age: >/= 65 years Risk Factors: No Risk Factors Troponin: </= Normal Limit Score: 2 MDM MDM MDM Narrative Medical decision making narrative: Differential diagnosis includes cardiac dysrhythmia, cardiac ischemia, pneumonia, pneumothorax, musculoskeletal pain, and anxiety. EKG will be obtained to assess for cardiac dysrhythmia and cardiac ischemia. Chest x-ray will be obtained to assess for pneumonia and pneumothorax. CBC will be obtained to assess for leukocytosis and anemia. Basic metabolic profile will be obtained to assess for electrolyte abnormality and renal function. High-sensitivity troponin will be obtained to assess for cardiac ischemia. 2-hour repeat high- sensitivity troponin will be obtained to assess for ongoing cardiac ischemia. Patient does not have any PE risk factors, patient has a Wells score of 0, patient is not tachycardic or tachypneic, therefore, I do not feel this is normal pulmonary embolism. Lab Data Attestation: I reviewed the patient's lab results. Lab results narrative: CBC was reviewed and was within normal limits. Basic metabolic profile was reviewed and was within normal limits. High-sensitivity troponin was reviewed and was less than 3. 2-hour repeat high-sensitivity troponin was reviewed and was less than threes. Labs: Laboratory Results - last 24 hr 07/18/24 07/18/24 12:07 14:19 WBC 8.1 RBC 4.93 Hgb 14.2 Hct 43.0 MCV 87.2 MCH 28.8 MCHC 33.0 RDW Std Deviation 40.3 RDW Coeff of Delisa 12.7 Plt Count 298 MPV 9.2 Immature Gran % (Auto) 0.600 Neut % (Auto) 46.6 L Lymph % (Auto) 39.3 Lassen % (Auto) 9.5 Eos % (Auto) 3.1 Baso % (Auto) 0.9 Absolute Neuts (auto) 3.8 Absolute Lymphs (auto) 3.17 Nucleated RBC % 0 Sodium 139 Potassium 3.7 Chloride 107 Carbon Dioxide 27.0 Anion Gap 5 BUN 17 Creatinine 0.72 Estim Creat Clear Calc 54.59 Est GFR (MDRD) Af Amer 104 Est GFR (MDRD) Non-Af 86 BUN/Creatinine Ratio 23.6 H Glucose 103 Calcium 9.4 Troponin I High Sens < 3 L < 3 L Radiography Diagnostic Testing: Clinical Impression(s) from Imaging Studies Chest X-Ray 07/18/24 11:59 IMPRESSION: No radiographic evidence of acute cardiopulmonary disease. Electronically Signed: Jimbo Gomez MD at 12:58 EDT , Portable 1 view chest x-ray was obtained. On my independent interpretation, lung lombardi are clear. There is normal cardiac silhouette. Bony thorax is normal. There is no acute process noted. Radiologist also interpreted the x- ray and agrees. EKG Initial EKG: Attestation: I personally reviewed and interpreted this EKG as follows: Interpretation: Sinus Rhythm (65) and No Acute Injury Pattern Comments: EKG was obtained. On my independent interpretation, it showed a normal sinus rhythm with a rate of 65. SD interval, QRS interval, and QTc intervals were all normal. [place]land was normal. There are no acute ST or T wave changes. Prior EKG tracings: available for review Prior: Unchanged (07/09/2023) Treatment and Re-Evaluation :: Patient was given aspirin here. Patient was feeling better on reevaluation. Patient was advised of her findings. Patient has a HEART score of 2. Patient was advised that this is low risk for acute cardiac event. Patient was instructed to follow-up with her primary care physician in 5 to 7 days. Patient was instructed to return if worse in any way. Patient understood and was agreeable with the plan. All questions were answered. Discharge Plan Triage Chief Complaint: Chest Pain ED Provider: Dwight Rosales Dx/Rx/DC Orders Clinical Impression: Chest pain, Elevated blood pressure reading Instructions: ED Chest Pain, Uncertain Cause Prescriptions: No Action multivitamin,ht-seth-[id number] [Complete Multivitamin] tablet 1 tab PO QDAY fexofenadine [Marie Allergy] 60 mg tablet 60 mg PO BID cholecalciferol (vitamin D3) 50 mcg (2,000 unit) capsule 50 mcg PO DAILY (DME) hydrocortisone 2.5%/lidocaine 5% suppository (compound) Suppository See Rx Instructions .Route Qty: 30 1RF Rx Instructions: insert 1 rectally twice daily calcium carbonate 500 MG tablet 500 mg PO BIDCM Primary Care Provider: Care Physician,No Primary Referrals: Kathryn Darby MD [Med Staff - Active Staff] - 3-5 Days Print Language: Pashto Disposition Disposition: Home, Self Care
[2024-07-18] MEDS: Aspirin 81 MG TAB.CHEW 324 MG PO (12:06)
[2024-07-18 12:07] VITALS: O2SAT 95
[2024-07-18 12:14] LABS: Absolute Lymphocyte Count 3.17 X10^3/uL (0.83-4.51); Absolute Neutrophil Count 3.8 X10^3/uL (2.0-7.7); Basophil# 0.07 X10^3/uL; Basophil% 0.9 % (0-1); Eosinophil# 0.25 X10^3/uL; Eosinophils% 3.1 % (0-5); Hemoglobin 14.2 g/dL (12.0-15.0); Lymphocyte # 3.17 X10^3/ul (0.83-4.51); Lymphocyte % 39.3 % (19-41); Mean Corpuscular Hgb 28.8 pg (27.0-32.0); Mean Corpuscular Volume 87.2 fL (81-99); Mean Platelet Vol. 9.2 fl (6.2-12.0); Monocyte# 0.77 X10^3/uL; Monocyte% 9.5 % (0-10); NRBC Flagged by Analyzer 0 % (0-5); Neutrophil # 3.76 X10^3/uL (2.7-7.7); Neutrophil % 46.6 % (47-70); Platelet Count 298 K/mm3 (150-450); RBC Distribution Width CV 12.7 % (11.6-14.6); RBC Distribution Width SD 40.3 fl (35.1-43.9); Red Blood Count 4.93 M/mm3 (4.2-5.4); White Blood Count 8.1 K/mm3 (4.4-11.0)
[2024-07-18 12:31] LABS: Anion Gap 5 (5-15); BUN 17 mg/dL (7-18); BUN/Creat Ratio 23.6 RATIO (10-20); Calcium,Total 9.4 mg/dL (8.5-10.1); Chloride 107 mmol/L (98-107); Creatinine, Serum 0.72 mg/dL (0.55-1.02); EST Glomerular Filtration Rate 86 mL/min (>60); Est Glom Filt Rate - Afr Amer 104 mL/min (>60); Estimated Creatinine Clearance 54.59 ml/min; Glucose 103 mg/dL (74-106); Potassium 3.7 mmol/L (3.5-5.1); Sodium Level 139 mmol/L (136-145); Troponin-I HS (w/2H Reflex) < 3 pg/mL (3.0-54.0)
[2024-07-18 13:13] VITALS: BP 130/79; PULSE 59; RESP 13; O2SAT 95
[2024-07-18 14:00] VITALS: BP 127/82; PULSE 59; RESP 18; O2SAT 98
[2024-07-18 14:11] LABS: Reflex Troponin-HS? (from REC) Y
[2024-07-18 14:49] LABS: Troponin-I HS < 3 pg/mL (3.0-54.0)
[2024-07-18 15:00] VITALS: BP 126/83; PULSE 60; RESP 12; O2SAT 96
[2024-07-18 15:44] VITALS: BP 125/88; PULSE 68; RESP 16; TEMP 36.6; O2SAT 99
== END 2024-07-18 15:51 | disposition home or self-care (01) ==
PROVIDERS: Emergency Provider Emergency Medicine; Visit Provider Emergency Medicine
DX: R07.9 Chest pain, unspecified (principal); R03.0 Elevated blood-pressure reading, without diagnosis of hypertension
CPT/HCPCS: 71045; 80048; 84484; 85025; 93005; 99284; A4216

== ENCOUNTER → 2024-08-04 | Outpatient (CLI) | payer MEDICARE, SELFPAY ==
[2024-08-04 16:57] LABS: Cholesterol 211 mg/dL (200); High Density Lipoprotein 50 mg/dL; Triglycerides 172 mg/dL; Very Low Density Lipoprotein 34 mg/dL (5-40)
== END | disposition home or self-care (01) ==
LOC: BIMLAB 14:39
PROVIDERS: Visit Provider Nurse Practitioner
DX: Z00.00 Encounter for general adult medical examination without abnormal findings (principal); R07.9 Chest pain, unspecified
CPT/HCPCS: 36415; 80061; 84443

== ENCOUNTER → 2024-08-20 | Outpatient (CLI) | payer MEDICARE, SELFPAY ==
--- NOTE | 2024-08-20 16:15 | STRESSREP_ITS ---
Stress Test Report Exercise myocardial perfusion stress test. 69-year-old lady with a history of chest pain Stress protocol: Resting EKG demonstrates normal sinus rhythm with a rate of 59 bpm resting blood pressure is 116/80 mmHg. The patient exercised according to the regular Greg protocol for a total duration of 7 minutes attaining a maximum heart rate of 157 bpm which was 103% of maximum predicted heart rate; the maximum workload was 10 metabolic equivalents. At rest there were no ST or T wave changes noted to suggest ischemia and at peak exercise upsloping ST changes only were noted which did not meet the criteria for ischemia. No clinical angina was noted the test was terminated due to the target heart rate being achieved/fatigue. The peak b lood pressure was 150/72 mmHg. Rate-pressure product was 20,800. Myocardial perfusion protocol. 11.7 mCi of technetium 99m sestamibi was injected at rest. The patient exercised according to regular Greg protocol for total duration of 7 minutes and at peak exercise 33.1 mCi of technetium 99m sestamibi was injected stress images were obtained stress and rest images were reconstructed in comparing the short axis vertical long and horizontal long axis. Gated images were also obtained. Perfusion SPECT analysis: Review of the stress images demonstrate normal uptake of tracer noted in all areas of the myocardium. The resting images similarly demonstrate normal uptake of tracer noted in all areas of the myocardium. No areas of reversibility are noted to suggest ischemia no previous infarct was noted. Gated SPECT analysis: The gated ejection fraction is 77%. Conclusion: Normal exercise myocardial perfusion stress test at a high workload Preserved ejection fraction.
== END | disposition home or self-care (01) ==
LOC: CVS 06:03
PROVIDERS: PCP Internal Medicine; Referring Provider Nurse Practitioner; Visit Provider Nurse Practitioner
DX: R07.9 Chest pain, unspecified (principal)
CPT/HCPCS: 78452; 93017; A9500; A4216

== ENCOUNTER → 2024-10-01 | Outpatient (CLI) | payer MEDICARE, SELFPAY ==
[2024-10-01 12:36] LABS: Vitamin D,25 Hydroxy 44.4 ng/mL
== END | disposition home or self-care (01) ==
LOC: BIMLAB 09:10
PROVIDERS: PCP Internal Medicine; Referring Provider Internal Medicine; Visit Provider Internal Medicine
DX: M85.80 Other specified disorders of bone density and structure, unspecified site (principal)
CPT/HCPCS: 36415; 82306

== ENCOUNTER → 2025-06-09 | Outpatient (CLI) | payer MEDICARE, SELFPAY ==
--- NOTE | 2025-06-09 12:30 | BI_ITS ---
EXAM: SCRN MAMM (CAD)W/LYNDSAY BILAT DATE: 06/09/2025 CLINICAL HISTORY: F, Age 69 y/o , SCREENING FOR BREAST CANCER TECHNIQUE: SCRN MAMM (CAD)W/LYNDSAY BILAT COMPARISON: Prior exam(s) dated 06/08/2024, 06/06/2023, 05/29/2022. FINDINGS: TISSUE DENSITY: There are scattered areas of fibroglandular density. Bilateral Breast Mammographic Findings: No significant masses, calcifications or other abnormalities are identified. BI/SCRN MAMM (CAD)W/LYNDSAY BILAT IMPRESSION: There is no mammographic evidence of malignancy. OVERALL FINAL ASSESSMENT BI-RADS 1: NEGATIVE. RECOMMENDATION: Routine annual follow-up in 1 Year A letter with findings and recommendations will be mailed to the patient. Reading Location: [id number]
--- OUTSIDE RECORDS SUMMARY | 2025-06-09 20:29 | XMS RPT_ITS | CCD ---
Author Organization [facility] Care Team Providers Care Guest Relations Agent Name Role Phone INOCENCIO CHEW Attending Unavailable INOCENCIO CHEW Primary Care Unavailable INOCENCIO CHEW Admitting Unavailable Kathryn Darby MD Primary Care Provider [phone] Kathryn Darby MD Primary Care Provider [phone] Dr. Kathryn Darby Primary Care Provider [phone] Dr. Kathryn Darby Referring Provider Natalie LOAD OUT PERSON, DANIKA Camacho Attending Provider Dr. Carina Diego Attending Provider Kathryn Darby MD Primary Care Provider [phone] KATHRYN DARBY Primary Care Unavailable COLBY CRUZ II Attending Unavailezra e SELF Referring Unavailable ANDRE DARBYBE Pierre Primary Care Unavailable MERRY CRUZ Attending UnavailJanice Luu Attending Unavailable Calvin, Geetha Referring Unavailable Royersford, Geetha Primary Care Unavailable José Miguel Toledo Attending Unavailable Eula Cole Referring Unavailable Royersford, Geetha Primary Care Unavailable Eula Cole Consulting Unavailable Eula Cole Attending Unavailable Care Physician, No Primary Referring Unava ilable Care Physician, No Primary Primary Care Unava ilable Janice Estrada Attending Unavailable Janice Estrada Referring Unavailable Calvin, Geetha Primary Care Unavailable Eula Cole Attending Unavailable Care Physician, No Primary Primary Care Unava ilable Eula Cole Attending Unavailable Eula Cole Referring Unavailable Calvin, Geetha Primary Care Unavailable Calvin, Geetha Attending Unavailable Calvin, Geetha Referring Unavailable Royersford, Geetha Primary Care Unavailable Janice Estrada Attending Unavailable NatalieJanice herbert Referring Unavailable Oleghe, Efewongbe Primary Care Unavailable wDight Rosales Attending Unavailable Care Physician, No Primary Primary Care Unava ilable Janice Estrada Attending Unavailable Oleghe, Efewongbe Referring Unavailable Oleghe, Efewongbe Primary Care Unavailable Royersford, Geetha Attending Unavailable Care Physician, No Primary Referring Unava ilable Calvin, Geetha Primary Care Unavailable Calvin SPARKS, Dr. Iniguez Primary Care Provider Natalie LOAD OUT PERSON-CJanice Attending Provider Natalie LOAD OUT PERSON-CJanice Referring Provider Calvin SPARKS, Dr. Iniguez Referring Provider Medications Current Medications Medication Drug Class(es) Dates Sig (Normalized) Sig (Original) cholecalciferol, vitamin D3, (VITAMIN D3 ORAL) (9 sources) cholecalciferol, vitamin D3, (VITAMIN D3 ORAL) Take by mouth. Active cholecalciferol, vitamin D3, (VITAMIN D3 ORAL) Take by mouth. 0 Active Comment on above: Take by mouth. erythromycin 0.005 mg/mg ophthalmic ointment (5 sources) Macrolide, Macrolide Antimicrobial Start: 3 End: 4 apply 3.5 g into the eye(s) twice daily erythromycin (ROMYCIN) 5 mg/gram (0.5 %) ophthalmic ointment Apply to incisions twice daily x 1 week 3.5 g 05/24/2023 07/20/2024 Discontinued (Course of therapy completed) Start: 05-17-2023 End: 05-24-2023 erythromycin (ROMYCIN) 5 mg/ gram (0.5 %) ophthalmic ointment Use 1 application in the right eye three times daily. Apply 1/2 inch ribbon per application 3.5 g 0 05/17/2023 05/24/2023 Discontinued (Course of therapy completed) Comment on above: Apply to incisions t wice daily x 1 week Use 1 application in the right eye three times daily. Apply 1/2 inch ribbon per application estradiol 0.1 mg/ml vaginal cream (5 sources) Estrogen Start: 06-09-2025 Estradiol 0.01 % (0.1 mg/gram) cream Active 0 VAGINAL .COMPLEX 42.5 2 June 09, 2025 12:00am small amount(.25mg) as directed vaginal every other day X 4 weeks then twice a week; Start: 05-29-2022 End: 07-18-2024 Estradiol 0.01 % (0.1 mg/gra m) cream Discontinued 0 VAGINAL .COMPLEX 42.5 2 May 29, 2022 12:00am July 18, 2024 12:09pm small amount as directed vaginal every other day X 4 weeks then twice a week; Start: 05-29-2022 Estradiol Acti ve 0 VAGINAL .COMPLEX 42.5 May 29, 2022 12:00am small amount as directed vaginal every other day X 4 weeks then twice a week; fexofenadine hydrochloride 60 mg oral tablet (9 sources) Histamine-1 Receptor Antagonist Start: 05-02-2021 take 1 tablet by mouth twice daily Fexofenadine (Marie Allergy) 60 mg tablet Active 60 mg PO TWICE A DAY May 02, 2021 12:00am Start: 01-27-2019 End: 09-24-2019 take 1 tablet by mouth once daily Fexofenadine (Marie Allergy) 180 mg tablet Discontinued 180 mg PO DAILY January 27, 2019 12:00am September 24, 2019 9:29am fexofenadine HCl (MARIE ORAL) Take by mouth. Active Hydrocortisone 2.5%/Lidocain e 5% Suppository (Cmpd) [Hydrocortisone 2.5%/Lidocaine 5% Suppository (Compound)] (Hydrocortisone ) suppository (2 sources) Start: 07-09-2023 Hydrocortisone 2.5%/Lidocaine 5% Suppository (Cmpd) [Hydrocortisone 2.5%/Lidocaine 5% Suppository (Compound)] (Hydrocortisone ) suppository Active 0 .Route 30 July 09, 2023 12:00am insert 1 rectally twice daily Start: 07-09-2023 Hydrocortisone 2.5%/Lidocaine 5% Suppository (Cmpd) [Hydrocortisone 2.5%/Lidocaine 5% Suppository (Compound)] (Hydrocortisone ) suppository Active 0 .ROUTE July 09, 2023 12:00am insert 1 rectally twice daily Multivitamin capsule (9 sources) take 1 capsule by mo uth once daily Multivitamin capsule Take 1 capsule by mouth once daily. Active take 1 capsule by mouth once june ly Multivitamin capsule Take 1 capsule by mouth once daily. 0 Active Comment on above: Take 1 capsule by mo uth once daily. Multivitamin,Tx-Iro n-Minerals (Complete Multivitamin) tablet (1 source) Start: 01-22-2018 Multivitamin,Tx-Ir on-Minerals (Complete Multivitamin) tablet Active 1 {tbl} PO daily January 22, 2018 12:00am multivitamin,tx-iro n-minerals tablet (3 sources) Start: 01-22-2018 take 1 tablet by mouth once daily multivitamin,tx-ir on-minerals tablet Active 1 TABLET PO daily January 22, 2018 12:00am Zinc Acetate (9 sources) Start: 05-29-2022 ZINC ACETATE ORAL Take by mouth. 05/29/2022 Active Start: 05-29-2022 ZINC ACETATE O RAL Take by mouth. 0 05/29/2022 Active Comment on above: Take by mouth. zinc gluconate 30 mg oral tablet (1 source) Start: 08-04-2024 take 1 tablet by mouth once daily Zinc Gluconate 30 mg tablet Active 30 mg PO daily August 04, 2024 12:00am Completed/Discontinued Medications Medication Drug Class(es) Dates Sig (Normalized) Sig (Original) calcium carbonate 1250 mg oral tablet (13 sources) Start: 10-20-2019 End: 10-01-2024 take 1 tablet by mouth twice daily at mealtime Calcium Carbonate 500 MG tablet Discontinued 500 mg PO TWICE DAILY WITH MEALS October 20, 2019 1:00am October 01, 2024 9:16am Comment on above: Take by mouth. cholecalciferol 0.05 mg oral capsule (4 sources) Vitamin D Start: 05-29-2022 End: 10-01-2024 take 1 capsule by mouth once daily Cholecalciferol (Vitamin D3) 50 mcg (2,000 unit) capsule Discontinued 50 ug PO DAILY May 29, 2022 12:00am October 01, 2024 9:16am tropicamide 5 mg/ml ophthalmic solution (4 sources) Anticholinergic Start: 07-20-2024 End: 07-20-2024 tropicamide 0.5 % 1 Drop (MYDRIACYL) Start: 07-20-2024 End: 07-20-2024 1 Drop, BOTH EYES, ONCE, 1 d ose, On Sat07/20/24 at 0900, FOR THE EYE Start: 07-25-2023 End: 07-25-2023 tropicamide 0.5 % 1 Drop (MY DRIACYL) Start: 07-24-2022 End: 07-24-2022 tropicamide 0.5 % 1 Drop (MY DRIACYL) Zinc (4 sources) Start: 05-29-2022 End: 06-06-2023 take 1 tablet by mouth once daily Zinc 50 mg tablet Discontinued 50 mg PO DAILY May 29, 2022 12:00am June 06, 2023 8:20am Start: 05-29-2022 End: 06-06-2023 take 50 mg by mouth once daily Zinc Discontinued 50 MG PO DAILY May 29, 2022 12:00am June 06, 2023 8:20am Problems Active Problems Problem Classification Problem Date Documented Da te Episodic/Chronic Blindness and vision defects (20 sources) Bilateral hyperopia of eyes; Translations: [Hypermetropia, bilateral] Onset: 07-14-2014 Episodic Cardiac dysrhythmias (2 sources) Bradycardia, unspecified; Translations: [Bradycardia] Onset: 08-04-2024 10-01-2024 Episodic Cataract (11 sources) Bilateral senile combined form cataracts of eyes; Translations: [Combined forms of age-related cataract, bilateral] Onset: 09-05-2015 Chronic Hemorrhoids (3 sources) Hemorrhoids; Translations: [Unspecified hemorrhoids] 07-11-2023 Episodic Comment on above: internal Menopausal disorders (8 sources) Atrophic vaginitis; Translations: [Postmenopausal atrophic vaginitis] Onset: 06-08-2024 05-29-2022 Chronic Comment on above: estradiol cream Nonspecific chest pain (9 sources) Chest pain; Translations: [Chest pain, unspecified] Onset: 09-10-2024 06-06-2023 Episodic Other aftercare (1 source) Post-discharge follow-up; Translations: [Encounter for follow-up examination after completed treatment for conditions other than malignant neoplasm] 09-30-2024 Episodic Other bone disease and musculoskeletal deformities (13 sources) Osteopenia; Translations: [Other specified disorders of bone density and structure, unspecified site] Onset: 12-24-2011 12-24-2011 Episodic Other circulatory disease (1 source) Elevated blood pressure; Translations: [Elevated blood-pressure reading, without diagnosis of hypertension] 07-26-2024 Episodic Other eye disorders (1 source) Bilateral vitreous floaters; Translations: [Other vitreous opacities, bilateral] Chronic Other eye disorders (9 sources) Vitreous floaters; Translations: [Other vitreous opacities, unspecified eye] Onset: 09-05-2015 09-05-2015 Chronic Other eye disorders (9 sources) Posterior vitreous detachment of right eye; Translations: [Vitreous degeneration, right eye] Onset: 01-04-2020 01-04-2020 Chronic Other eye disorders (1 source) Excess skin of eyelid; Translations: [Dermatochalasis of right upper eyelid] Episodic Other eye disorders (2 sources) Dermatochalasis of right upper eyelid; Translations: [Dermatochalasis] Episodic Other eye disorders (2 sources) Bilateral myogenic ptosis of eyes; Translations: [Myogenic ptosis of bilateral eyelids] Episodic Other gastrointestinal disorders (4 sources) Incontinence of feces; Translations: [Full incontinence of feces] 06-06-2023 Episodic Other gastrointestinal disorders (4 sources) Full incontinence of feces; Translations: [Full incontinence of feces] 06-06-2023 Episodic Other screening for suspected conditions (not mental disorders or infectious disease) (6 sources) Mammography abnormal; Translations: [Other abnormal and inconclusive findings on diagnostic imaging of breast] Onset: 06-30-2024 06-06-2023 Episodic Comment on above: 02/16/20 Bx benign Prolapse of female genital organs (8 sources) Cystocele and rectocele co-occurrent with incomplete uterovaginal prolapse; Translations: [Incomplete uterovaginal prolapse] Onset: 06-08-2024 05-02-2021 Chronic Comment on above: stable Residual codes; unclassified (2 sources) Postoperative state; Translations: [Other specified postprocedural states] 05-24-2023 Episodic Unclassified (3 sources) Invalid ICD10 Description; Translations: [Invalid ICD10 Description] Onset: 12-05-2020 Past or Other Problems Problem Classification Problem Date Documented Da te Episodic/Chronic Administrative/social admission (1 source) Persons encountering health services in other specified circumstances; Translations: [Persons encountering health services in other specified circumstances] Onset: 10-01-2024 Episodic Inflammation; infection of eye (except that caused by tuberculosis or sexually transmitteddisease) (1 source) Acute infectious conjunctivitis; Translations: [Unspecified acute conjunctivitis, bilateral] Onset: 01-31-2016 Resolved: 08-13-2016 08-13-2016 Episodic Other aftercare (1 source) Encounter for follow-up examination after completed treatment for conditions other than malignant neoplasm; Translations: [Encounter for follow-up examination after completed treatment for conditions other than malignant neoplasm] Onset: 08-04-2024 Episodic Other bone disease and musculoskeletal deformities (4 sources) Other specified disorders of bone density and structure, unspecified site; Translations: [Disorder of bone and cartilage, unspecified] Onset: 10-30-2024 06-06-2023 Episodic Other connective tissue disease (1 source) Pain in right foot; Translations: [Pain in right foot] Onset: 10-01-2024 Episodic Other injuries and conditions due to external causes (1 source) Foreign body in conjunctival sac; Translations: [Foreign body in conjunctival sac, unspecified eye, initial encounter] Onset: 09-29-2015 Resolved: 08-13-2016 08-13-2016 Episodic Residual codes; unclassified (1 source) Immunization not carried out because of patient refusal; Translations: [Immunization not carried out because of patient refusal] Onset: 10-01-2024 Episodic Results Test Name Value Interpretation Reference Range Facil ity Vitamin D,25 Hydroxyon 10-01 Vitamin D 25-OH 44.4 ng/mL Normal [facility] Comment on above: Result Comment: Rose min D 25(OH) Status Range Deficiency <20 ng/mL (50nmol/L) Insufficiency 20 - 30 ng/mL (50 - 75 nmol/L) Sufficiency 30 - 100 ng/mL (75 - 250 nmol/L) Toxicity >100 ng/mL (>250 nmol/L) Performed By: #### L [id number] ####[facility] [id number] [place], [address] Internal Medicine Office Vis carmina 09-30-2024 Internal Medicine Office Visit [facility] [address] [place] [address] [place] [address] OFFICE VISIT Date of Service: 10/01/24 MR#: [id number] Acct: [id number] Name: BAILEY SOUTH Rep #: [id number] : 1955 Provider: Dr. Geetha cordova MD Age/Sex: 69/F Location: [facility] Status: Signed Intake Vital Signs 07/18/24 11:49 07/20/24 09:53 08/04/24 13:47 10/01/24 08:20 Height 5 ft 5 ft 5 ft 5 ft Weight: 131 lb BMI 25.5 BP 110/70 Blood Pressure Location Lt brachial Position Sitting Respiration 16 Pulse 64 Pulse Source Monitor Temp 97.6 F L Temp Source Temporal Pulse Oximetry (%) 98 Oxygen Delivery Method room air Intake Visit Reasons: LOAD OUT PERSON EST CARE-WC PT-FORMER DR DARBY PATIENT Chief Complaint: Annual [place] Required: No Is patient in pain?: Yes (R foot) Pain scale (1-10): 2 Allergies No Known Allergies Allergy (Verified 10/01/24 08:12) Medications ???Medication ???Instructions ???Recorded ???Confirmed ???Type multivitamin,tx-iron- minerals 1 tab PO QDAY 01/22/18 10/01/24 History (Complete Multivitamin tablet) fexofenadine 60 mg tablet (Marie 60 mg PO BID 05/02/21 10/01/24 History Allergy) Hydrocortisone 2.5%/lidocaine 5% #30 ea 07/09/23 10/01/24 Rx suppository (cmpd) (hydrocortisone 2.5%/lidocaine 5% suppository (compound)) zinc gluconate 30 mg tablet 30 mg PO QDAY 08/04/24 10/01/24 History Have you fallen in the past year?: No Nurse's Note: States she has been having R foot pain, is concerned it's planatars fascitis. The pain is constant. Is using an elastic bandage which seems to be helping some. Feels it in the heel, arch and back of foot. is starting to feel it on the top. Has been going on several months the pain level stays the same. Declines flu vaccine. [facility] Medical History (Updated 10/01/24 @ 09:[address] Geetha Simpson MD) Bradycardia Abnormal mammogram of right breast Hemorrhoids Osteopenia Surgical History H/O blepharoplasty History of breast biopsy Family History (Updated 10/01/24 @ 08:[address] Geetha Simpson MD) Brother Cancer brain tumor Grandmother Diabetes Grandmother Hypertension Heart disease Mother Arthritis Daughter Rheumatoid arthritis Social History (Updated 10/01/24 @ 08:[address] Geetha Simpson MD) adopted: No household members: spouse number of children: 2 current occupational status: retired current occupation: worked for [employer]. 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 pets and animals: No sexually active: No Smoking Status: Never smoker alcohol intake: never substance use type: does not use caffeine: Yes (1-2) Type: carbonated beverages what type of physical activity do you participate in: walking and weight training frequency: 5-6 times per week seatbelt use: always do you feel safe at home: Yes additional social history: [place] Seasonal at [facility] there is summer HPI HPI Chief Complaint: Annual Details: BAILEY SOUTH, is a 69 F who presents to the office today to establish care. She was seeing Dr. Darby and last saw her a few years ago. She is not due for any routine blood work. She is up to date on her screening. She doesn't want any immunizations today, but will think about her pneumonia shots. She doesn't smoke and doesn't take any prescription medications. She reports she is eating healthy most of the time and staying active. She tries to walk 3.5 miles a few times per week and likes to do water aerobics during the summer. The patient was seen in the ED back in July for chest pain. She has since had a normal stress test. She reports that she hasn't had any further problems. The patient has concerns about plantar fasciitis. 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 She reports it started flaring up several months ago. She states it is similar to what she had previously, but states she feels it in more areas of her foot. she has been having some cramping at the bottom of her foot which will shoot up her leg, but will notice some pain at the top of her foot as well. She reports she bought a compression sleeve which does seem to help. She reports she feels it throughout the day. She denies any numbness or tingling, nor any swelling of her foot. She denies any involvement in her left foot stating she has only noticed it in the right foot. ROS Const Constitutional: No body ache, chills, excessive sweating, fatigue, fever(s), frequent falls, headache(s), snoring, weakness, weight change, sleep problems or change in appetite Eyes Eyes: Positive for change in vision (start of cataracts); No blurry vision, eye pain or Light sensitivity ENT ENT: No abnormal hearing, ear or mastoid pain, ti (more content not included)... Normal [facility] Stress Reporton 08-20-2024 Stress Report [facility] [address] [place] [address] MR#: [id number] Acct: [id number] Name: BAILEY SOUTH Rep #: [id number] : 1955 69 From: José Miguel Toledo MD Primary Care: Dr. Geetha Simpson MD Status: REG CLI Referring Dr: Eula Cole LOAD OUT PERSON-C Sex: F C Stress Test Report Exercise myocardial perfusion stress test. 69-year-old lady with a history of chest pain Stress protocol: Resting EKG demonstrates normal sinus rhythm with a rate of 59 bpm resting blood pressure is 116/80 mmHg. The patient exercised according to the regular Greg protocol for a total duration of 7 minutes attaining a maximum heart rate of 157 bpm which was 103% of maximum predicted heart rate; the maximum workload was 10 metabolic equivalents. At rest there were no ST or T wave changes noted to suggest ischemia and at peak exercise upsloping ST changes only were noted which did not meet the criteria for ischemia. No clinical angina was noted the test was terminated due to the target heart rate being achieved/fatigue. The peak blood pressure was 150/72 mmHg. Rate-pressure product was 20,800. Myocardial perfusion protocol. 11.7 mCi of technetium 99m sestamibi was injected at rest. The patient exercised according to regular Greg protocol for total duration of 7 minutes and at peak exercise 33.1 mCi of technetium 99m sestamibi was injected stress images were obtained stress and rest images were reconstructed in comparing the short axis vertical long and horizontal long axis. Gated images were also obtained. Perfusion SPECT analysis: Review of the stress images demonstrate normal uptake of tracer noted in all areas of the myocardium. The resting images similarly demonstrate normal uptake of tracer noted in all areas of the myocardium. No areas of reversibility are noted to suggest ischemia no previous infarct was noted. Gated SPECT analysis: The gated ejection fraction is 77%. Conclusion: Normal exercise myocardial perfusion stress test at a high workload Preserved ejection fraction. 08/20/241616 Date José Miguel Toledo MD CC: DANIKA Cole; Dr. Geetha Simpson MD Date Dictated: 08/20/241614 Date Transcribed: 08/20/241614 [employer]: [place] Signed Normal [facility] Internal Medicine Office Vis ito 08-04-2024 Internal Medicine Office Visit [facility] [address] [place] [address] [place] [address] OFFICE VISIT Date of Service: 08/04/24 MR#: [id number] Acct: [id number] Name: BAILEY SOUTH Rep #: [id number] : 1955 Provider: DANIKA hernandes Age/Sex: 69/F Location: [facility] Status: Signed Intake Vital Signs 07/18/24 11:49 07/20/24 09:53 08/04/24 13:47 Height 5 ft 5 ft 5 ft Weight: 130 lb BMI 25.4 BP 104/72 Blood Pressure Location Lt brachial Position Sitting Respiration 14 Pulse 50 L Pulse Source Monitor Temp 97.7 F L Temp Source Temporal Pulse Oximetry (%) 97 Oxygen Delivery Method room air Intake Visit Reasons: ACUTE [facility] FOLLOW UP- PT/RE-EST WITH DR SIMPSON Chief Complaint: Annual [place] Required: No Is patient in pain?: No Allergies No Known Allergies Allergy (Verified 08/04/24 13:42) Medications ???Medication ???Instructions ???Recorded ???Confirmed ???Type multivitamin,tx-iron- minerals 1 tab PO QDAY 01/22/18 07/18/24 History (Complete Multivitamin tablet) calcium carbonate 500 mg PO BIDCM 10/20/19 07/18/24 History fexofenadine 60 mg tablet (Marie 60 mg PO BID 05/02/21 07/18/24 History Allergy) cholecalciferol (vitamin D3) 50 50 mcg PO DAILY 05/29/22 07/18/24 History mcg (2,000 unit) capsule Hydrocortisone 2.5%/lidocaine 5% #30 ea 07/09/23 06/08/24 Rx suppository (cmpd) (hydrocortisone 2.5%/lidocaine 5% suppository (compound)) zinc gluconate 30 mg tablet 30 mg PO QDAY 08/04/24 08/04/24 History Have you fallen in the past year?: No Nurse's Note: Here for [facility] f/u on 07/18/24 for chest pain states she is no longer having chest pain SD ruled out. Has no concerns. [facility] Medical History Abnormal mammogram of right breast Abnormal mammogram of right breast Hemorrhoids Osteopenia Surgical History H/O blepharoplasty History of breast biopsy Family History Brother Cancer brain tumor Grandmother Diabetes Grandmother Diabetes Hypertension Heart disease Mother Arthritis Social History current occupational status: retired current occupation: Retired Smoking Status: Never smoker alcohol intake: never substance use type: does not use caffeine: Yes what type of physical activity do you participate in: walking and weight training frequency: 5-6 times per week seatbelt use: always do you feel safe at home: Yes additional social history: [place] at [facility]-lives there is summer HPI HPI Chief Complaint: Annual Details: BAILEY SOUTH, is a 69 F who presents to the office today for hospital f/u. She was evaluated on 07/18/2024 at [facility] ER for chest pain and lightheadedness. She states she felt L chest pain/chest pressure and L arm numbness while driving so she went to the ER. Estimates sx lasted 1 hour or less. Cardiac evaluation was essentially normal with unremarkable EKG, stable labs/negative troponin. VS were stable in ER. She denies a personal history of cardiac disease. She states 1 yr ago she developed severe back pain and chest pressure. She was evaluated by an EMS and states her VS were stable. She was [facility] and did not choose to be transported. She reports the pain and pressure lasted a few hours. No associated dizziness, lightheadedness, dyspnea, palpitations, syncope, peripheral edema, orthopnea, or PND. No L shoulder or neck pain to explain numbness. She is active, walking 1 hour 3-4 days a week on [place]. No additional similar episodes of chest discomfort since ER visit. Reports previous episodes were not related to meals or position changes. She denies anxiety sx or history of. She does have a family history of heart disease/problems in grandmother. No additional pertinent pmh noted. Denies sx today. ROS Const Constitutional: No body ache, chills, excessive sweating, fatigue, fever(s), frequent falls, headache(s), snoring, weakness, sleep problems or change in appetite Eyes Eyes: No blurry vision, change in vision, eye pain or Light sensitivity ENT ENT: No abnormal hearing, ear or mastoid pain, tinnitus, nasal congestion, headache(s), neck pain or sore throat Resp Respiratory: No cough, shortness of breath, snoring or wheezing Cardio Cardiology: No chest pain at rest, chest pain with exertion, excessive sweating, shortness of breath, dyspnea on exertion, lightheadedness, orthopnea or palpitations Gastro GI: No abdominal pain, change in bowel habits, constipation, cramping, diarrhea, nausea/dyspepsia or vomiting Genitourinary-Female: No burning urina (more content not included)... Normal [facility] Lipid Profileon 08-04-2024 Cholesterol [Mass/Vol] 211 mg/dL High 200 [facility] Comment on above: Result Comment: <200 mg/dL Desirable 200-240 mg/dL Borderline >240 mg/dL High Risk Performed By: #### L 501.9520, L500.4100 #### [facility] [address] [place], [address] Cholesterol in HDL [Mass/Vol] 50 mg/dL Normal [facility] Comment on above: Result Comment: The drugs N-Acetylcysteine and Metamizole may falsely depress this assay. Reference Range HDL <40 mg/dL Low HDL Cholesterol HDL >or= 60 mg/dL High HDL Cholesterol Performed By: #### L 501.9520, L500.4100 #### [facility] [address] [place], [address] Cholesterol in LDL [Mass/Vol] 127 mg/dL Normal 0-130 [facility] Comment on above: Performed By: #### L 501.9520, L500.4100 #### [facility] [address] [place], [address] Cholesterol in VLDL [Mass/Vol] 34 mg/dL Normal 5-40 [facility] Comment on above: Performed By: #### L 501.9520, L500.4100 #### [facility] [address] [place], [address] Triglyceride [Mass/Vol] 172 mg/dL Normal [facility] Comment on above: Result Comment: The drugs N-Acetylcysteine and Metamizole may falsely depress this assay. Serum Triglycerides Reference Interval Normal <150 mg/dL Borderline high 150 - 199 mg/dL High 200 - 499 mg/dL Very High > or = 500 mg/dL Performed By: #### L 501.9520, L500.4100 #### [facility] [address] [place], [address] Thyroid Stim Hormone (TSH)on 08-04-2024 TSH 3.660 uIU/mL Normal 0.358-3.740 [facility] Comment on above: Performed By: #### L 501.9520, L500.4100 #### [facility] [address] [place], [address] 12 Lead EKGon 07-18-2024 12 Lead EKG [facility] Cardiovascular Services [address] [place] [address] 12 Lead EKG 07/18/24 1200 MR#: [id number] Acct: [id number] Name: BAILEY SOUTH Rep #: [id number] : 1955 69 From: José Miguel Toledo MD Attending Dr: Status: DEP ER Ordering Dr: Dwight Rosales DO Date: 07/18/24 Location: ED Sex: F C Admitted: Test Reason : CP Blood Pressure : / mmHG Vent. Rate : 065 BPM Atrial Rate : 065 BPM P-R Int : 132 ms QRS Dur : 076 ms QT Int : 398 ms P-R-T Axes : 051 -03 043 degrees QTc Int : 413 ms Normal sinus rhythm Normal ECG Confirmed by YASMIN SPARKS, JOSÉ MIGUEL ([id number]), editor publications [employer] ([id number]) on 07/20/2024 6:32:58 AM Referred By: ES/JW Confirmed By:JOSÉ MIGUEL TOLEDO MD 07/20/24 0633 Date José Miguel Toledo MD CC: Dr. Dwight Rosales, ; No Primary Care Physician Signed Normal [facility] Basic Metabolic Profile (BMP )on 07-18-2024 BUN/CRE 23.6 RATIO High 10-20 [facility] Comment on above: Order Comment: 1 Y Performed By: #### L 500.2500, L100.0100, L501.5415 #### [facility] [address] [place], [address] CA,Total 9.4 mg/dL Normal 8.5-10.1 [facility] Comment on above: Order Comment: 1 Y Performed By: #### L 500.2500, L100.0100, L501.5425 #### [facility] [address] [place], [address] Chloride [Moles/Vol] 107 mmol/L Normal 98-107 [facility] Comment on above: Order Comment: 1 Y Performed By: #### L 500.2500, L100.0100, L501.5425 #### [facility] [address] [place], [address] CO2 [Moles/Vol] 27.0 mmol/L Normal 21.0-32.0 [facility] Comment on above: Order Comment: 1 Y Performed By: #### L 500.2500, L100.0100, L501.5425 #### [facility] [address] [place], [address] Creatinine [Mass/Vol] 0.72 mg/dL Normal 0.55-1.02 [facility] Comment on above: Order Comment: 1 Y Result Comment: The validity of the calculated GFR GFRAA in patients over 70 years has not been determined. Clinical correlation is essential. Performed By: #### L 500.2500, L100.0100, L501.5425 #### [facility] [address] [place], [address] ECRCL 54.59 ml/min Normal [facility] Comment on above: Order Comment: 1 Y Performed By: #### L 500.2500, L100.0100, L501.5425 #### [facility] [address] [place], [address] EST GFR - AA 104 mL/min Normal >60 [facility] Comment on above: Order Comment: 1 Y Result Comment: Afri can Ukrainian GFR Calc Performed By: #### L 500.2500, L100.0100, L501.5425 #### [facility] [address] [place], [address] GAP 5 Normal 5-15 [facility] Comment on above: Order Comment: 1 Y Performed By: #### L 500.2500, L100.0100, L501.5425 #### [facility] [address] [place], [address] GFR/1.73 sq M.predicted among non-blacks MDRD (S/P/Bld) [Vol rate/Area] 86 mL/min/{1.73_m2} Normal >60 [facility] Comment on above: Order Comment: 1 Y Result Comment: Non- GFR Calc Performed By: #### L 500.2500, L100.0100, L501.5425 #### [facility] [address] [place], [address] Glucose [Mass/Vol] 103 mg/dL Normal 74-106 [facility] Comment on above: Order Comment: 1 Y Result Comment: Fast ing Glucose result from 100 to 125 mg/dL suggests IMPAIRED HOMEOSTASIS per A.D.A. criteria. Performed By: #### L 500.2500, L100.0100, L501.5425 #### [facility] [address] [place], [address] Potassium [Moles/Vol] 3.7 mmol/L Normal 3.5-5.1 [facility] Comment on above: Order Comment: 1 Y Performed By: #### L 500.2500, L100.0100, L501.5425 #### [facility] [address] [place], [address] Sodium [Moles/Vol] 139 mmol/L Normal 136-145 [facility] Comment on above: Order Comment: 1 Y Performed By: #### L 500.2500, L100.0100, L501.5425 #### [facility] [address] [place], [address] Urea nitrogen [Mass/Vol] 17 mg/dL Normal 7-18 [facility] Comment on above: Order Comment: 1 Y Performed By: #### L 500.2500, L100.0100, L501.5425 #### [facility] [address] [place], [address] CBC W/Diff, Automatedon 09-0 7-2023 Absolute Lymph 3.17 X10 3/uL Normal 0.83-4.51 [facility] Comment on above: Performed By: #### L 500.2500, L100.0100, L501.5425 #### [facility] [address] [place], [address] Absolute Neut 3.8 X10 3/uL Normal 2.0-7.7 [facility] Comment on above: Performed By: #### L 500.2500, L100.0100, L501.5425 #### [facility] [address] [place], [address] Basophils/100 WBC (Bld) 0.9 % Normal 0-1 [facility] Comment on above: Performed By: #### L 500.2500, L100.0100, L501.5425 #### [facility] [address] [place], [address] Eosinophils/100 WBC (Bld) 3.1 % Normal 0-5 [facility] Comment on above: Performed By: #### L 500.2500, L100.0100, L501.5425 #### [facility] [address] [place], [address] Erythrocyte distribution width (RBC) [Ratio] 12.7 % Normal 11.6-14.6 [facility] Comment on above: Performed By: #### L 500.2500, L100.0100, L501.5425 #### [facility] [address] [place], [address] Hematocrit (Bld) [Volume fraction] 43.0 % Normal 37-47 [facility] Comment on above: Performed By: #### L 500.2500, L100.0100, L501.5425 #### [facility] [address] [place], [address] Hemoglobin (Bld) [Mass/Vol] 14.2 g/dL Normal 12.0-15.0 [facility] Comment on above: Performed By: #### L 500.2500, L100.0100, L501.5425 #### [facility] [address] [place], [address] IG% 0.600 Normal 0.0-0.9 [facility] Comment on above: Result Comment: IG% - Immature Granulocytes (promyelocytes, myelocytes and metamyelocytes) > 1% indicates that a LEFT SHIFT is Present. Performed By: #### L 500.2500, L100.0100, L501.5425 #### [facility] [address] [place], [address] Lymphocytes/100 WBC (Bld) 39.3 % Normal 19-41 [facility] Comment on above: Performed By: #### L 500.2500, L100.0100, L501.5425 #### [facility] [address] [place], [address] MCH (RBC) [Entitic mass] 28.8 pg Normal 27.0-32.0 [facility] Comment on above: Performed By: #### L 500.2500, L100.0100, L501.5425 #### [facility] [address] [place], [address] MCHC (RBC) [Mass/Vol] 33.0 g/dL Normal 32-36 [facility] Comment on above: Performed By: #### L 500.2500, L100.0100, L501.5425 #### [facility] [address] [place], [address] MCV (RBC) [Entitic vol] 87.2 fL Normal 81-99 [facility] Comment on above: Performed By: #### L 500.2500, L100.0100, L501.5425 #### [facility] [address] [place], [address] Monocytes/100 WBC (Bld) 9.5 % Normal 0-10 [facility] Comment on above: Performed By: #### L 500.2500, L100.0100, L501.5425 #### [facility] [address] [place], [address] Neutrophils/100 WBC (Bld) 46.6 % Low 47-70 [facility] Comment on above: Performed By: #### L 500.2500, L100.0100, L501.5425 #### [facility] [address] [place], [address] Nucleated RBC (Bld) [#/Vol] 0 10*3/uL Normal 0-5 [facility] Comment on above: Performed By: #### L 500.2500, L100.0100, L501.5425 #### [facility] [address] [place], [address] Platelet mean volume (Bld) [Entitic vol] 9.2 fL Normal 6.2-12.0 [facility] Comment on above: Performed By: #### L 500.2500, L100.0100, L501.5425 #### [facility] [address] [place], [address] Platelets (Bld) [#/Vol] 298 10*3/uL Normal 150-450 [facility] Comment on above: Performed By: #### L 500.2500, L100.0100, L501.5425 #### [facility] [address] [place], [address] RBC (Bld) [#/Vol] 4.93 10*6/uL Normal 4.2-5.4 [facility] Comment on above: Performed By: #### L 500.2500, L100.0100, L501.5425 #### [facility] [address] [place], [address] RDW SD 40.3 fl Normal 35.1-43.9 [facility] Comment on above: Performed By: #### L 500.2500, L100.0100, L501.5425 #### [facility] [address] [place], [address] WBC (Bld) [#/Vol] 8.1 10*3/uL Normal 4.4-11.0 [facility] Comment on above: Performed By: #### L 500.2500, L100.0100, L501.5425 #### [facility] [address] [place], [address] Chest 1 View (Portable)on Chest 1 View (Portable) [facility] Imaging Services [address] [place] [address] Chest 1 View (Portable) MR#: [id number] Acct: [id number] Name: BAILEY SOUTH Rep #: [id number] : 1955 F 69 From: Jimbo Duran PCP: Care Physician,No Primary Status: [facility] ER Study: Chest 1 View (Portable) Date of Exam: 07/18/24 Exam# [id number] Ordering Dr: Dwight Rosales DO [id number] INDICATION: chest pain EXAMINATION/TECHNIQUE : X-RAY - XR Chest 1 View COMPARISON: No relevant prior comparison study available __ FINDINGS: LINES/DEVICES: None. LUNGS: No consolidation, edema or effusion. No pneumothorax. MEDIASTINUM AND CARDIOVASCULAR STRUCTURES: Cardiac silhouette not enlarged. Tortuosity of the thoracic aorta. Central airways and mediastinal contour are unremarkable. BONES AND SOFT TISSUES: No demonstrated acute osseous changes. RAD/Chest 1 View (Portable) IMPRESSION: No radiographic evidence of acute cardiopulmonary disease. Electronically Signed: Jimbo Gomez MD at 12:58 EDT , CC: Dr. Dwight Rosales DO; No Primary Care Physician [employer] Sergeant: Signed Normal [facility] Emergency Department Summary on 07-18-2024 Emergency Department Summary [facility] Medical Records Department [address] [place] [address] Emergency Department Summary 07/18/24 MR#: [id number] Acct: [id number] Name: BAILEY SOUTH Rep #: [id number] : 1955 69 From: Dwight Rosales DO PCP: Care Physician,No Primary Status:DEP ER Location: ED HPI History of Present Illness Chief Complaint: Chest Pain Informant: patient Onset/Context/Timing Onset: Today Activity at onset: sudden Timing: Continuous Location: Left Chest and - (Left arm) Worsened By: Nothing Relieved By: Nothing Associated Symptoms: Positive for Lightheadedness; Negative for Nausea, Vomiting, Diaphoresis, Dyspnea, Cough, Fever, Acid Reflux or Palpitations Narrative Narrative: Patient presents with chest pain that began today. Patient states she has been feeling lightheaded for the past few days. Patient states that today she felt some pressure on the left side of her chest. Patient states that went down into her left arm. Patient states this started approximately 1 hour prior to arrival. Patient states that has been constant. Patient states nothing makes it better nothing makes it worse. Patient denies any nausea or vomiting. Patient denies any diaphoresis. Patient denies any shortness of breath or cough. CVD Risk Factors: Negative for Hypertension, Diabetes, Hypercholesterolemia, Family History 1' or Smoking PE Risk Factors: Negative for Recent Travel/Surgery, Recent Immobilization, Prior DVT or PE, Cancer or OCP + Smoking + >/=35 PFSH PFSH Medical History Abnormal mammogram of right breast Abnormal mammogram of right breast Hemorrhoids Osteopenia Home Medications ???Medication ???Instructions ???Recorded ???Last Taken ???Type multivitamin,tx-iron- minerals 1 tab PO QDAY 01/22/18 Unknown History (Complete Multivitamin tablet) calcium carbonate 500 mg PO BIDCM 10/20/19 Unknown History fexofenadine 60 mg tablet (Marie 60 mg PO BID 05/02/21 Unknown History Allergy) cholecalciferol (vitamin D3) 50 50 mcg PO DAILY 05/29/22 Unknown History mcg (2,000 unit) capsule Hydrocortisone 2.5%/lidocaine 5% #30 ea 07/09/23 Unknown Rx suppository (cmpd) (hydrocortisone 2.5%/lidocaine 5% suppository (compound)) Allergy/AdvReac Type Severity Reaction Status Date / Time No Known Allergies Allergy Verified 07/18/24 11:51 Family History Brother Cancer brain tumor Grandmother Diabetes Grandmother Diabetes Hypertension Heart disease Mother Arthritis Surgical History H/O blepharoplasty History of breast biopsy Social History current occupational status: retired current occupation: Retired Smoking Status: Never smoker alcohol intake: never substance use type: does not use caffeine: Yes what type of physical activity do you participate in: walking and weight training frequency: 5-6 times per week seatbelt use: always do you feel safe at home: Yes additional social history: [place] Seasonal at [facility]-lives there is summer ROS ROS ED Constitutional Constitutional ED: Denies chills or fever(s) Eyes Eyes: Denies blurry vision or change in vision ENT ENT ED: Denies rhinorrhea or sore throat Cardiovascular Cardiovascular: Reports chest pain; Denies palpitations Respiratory/Chest Respiratory/Chest: Denies cough or dyspnea Gastrointestinal Gastrointestinal: Denies nausea or vomiting Genitourinary Genitourinary ED: Denies dysuria or hematuria Musculoskeletal Musculoskeletal: Reports back pain; Denies neck pain Integumentary Denies abscess or rash Neurologic Neurologic: Denies headache(s) or weakness Allergic/Immunologic Allergic/Immunologic ED: Denies mouth swelling or urticaria EXAM Physical Exam Const Vital Signs: 07/18/24 11:49 07/18/24 12:07 07/18/24 13:13 Temperature 96.7 F L Temperature Source Temporal Pulse Rate 67 59 L Respiratory Rate 16 13 Blood Pressure 150/103 H 130/79 H Blood Pressure Mean 118 96 Pulse Ox 98 95 95 Oxygen Delivery Method Room Air Room Air 07/18/24 14:00 07/18/24 15:00 Temperature Temperature Source Pulse Rate 59 L 60 Respiratory Rate 18 12 Blood Pressure 127/82 H 126/83 H Blood Pressure Mean 97 97 Pulse Ox 98 96 Oxygen Delivery Method Positive well nourished and well developed General Appearance ED: well developed and NAD HEENT Reports moist mucous membranes Neck supple and no JVD Resp normal respiratory effort and clear to auscultation bilaterally Cardio regular rate and regular rhythm GI soft to palpation, non-tender and non-distended Neuro (more content not included)... Normal [facility] L501.4020on 07-18-2024 TROPONIN-I HS < 3 Low 3.0-54.0 [facility] Comment on above: Result Comment: Plea se Note: New Test Units and Gender Specific Reference Ranges. For more information see Policy Stat Procedure [place] High Sensitivity Troponin (TNIH) and attachments. Performed By: #### L 501.4020 #### [facility] [address] [place], [address] L501.5425on 07-18-2024 TROPONIN-I HS < 3 Low 3.0-54.0 [facility] Comment on above: Order Comment: 1 Y Result Comment: Plea se Note: New Test Units and Gender Specific Reference Ranges. For more information see Policy Stat Procedure [place] High Sensitivity Troponin (TNIH) and attachments. Performed By: #### L 500.2500, L100.0100, L501.5425 #### [facility] [address] [place], [place], [address] Senior Network Architect Office Visit Reporton 06-08-2024 Senior Network Architect Office Visit Report [facility] [address] [place], [place] [address] OFFICE VISIT Date of Service: 06/08/24 MR#: [id number] Acct: [id number] Name: BAILEY SOUTH Rep #: [id number] : 1955 Provider: DANIKA kumar Age/Sex: 68/F Location: [facility] Status: Signed Intake Vital Signs 07/09/23 14:42 06/08/24 08:51 06/08/24 08:58 Height 5 ft 5 ft 5 ft Weight: 130 lb 130 lb BMI 25.4 25.4 BP 134/79 H 130/82 H Blood Pressure Location Rt brachial Position Sitting Respiration 17 Pulse 64 Pulse Source Monitor Temp 97.4 F L Pulse Oximetry (%) 96 Oxygen Delivery Method room air Intake Visit Reasons: Annual ([employer]) Chief Complaint: Annual [place] Required: No Is patient in pain?: No Allergies No Known Allergies Allergy (Verified 06/08/24 08:51) Medications ???Medication ???Instructions ???Recorded ???Confirmed ???Type multivitamin,tx-iron- minerals 1 tab PO QDAY 01/22/18 06/08/24 History (Complete Multivitamin tablet) calcium carbonate 500 mg PO BIDCM 10/20/19 06/08/24 History fexofenadine 60 mg tablet (Marie 60 mg PO BID 05/02/21 06/08/24 History Allergy) cholecalciferol (vitamin D3) 50 50 mcg PO DAILY 05/29/22 06/08/24 History mcg (2,000 unit) capsule estradiol 0.01% (0.1 mg/gram) See Rx Instructions vaginal 05/29/22 06/08/24 Rx vaginal cream .COMPLEX #42.5 grams Hydrocortisone 2.5%/lidocaine 5% #30 ea 07/09/23 06/08/24 Rx suppository (cmpd) (hydrocortisone 2.5%/lidocaine 5% suppository (compound)) Is last menstrual period known: No Post menopausal: Yes Patient : No : No PFSH Medical History Abnormal mammogram of right breast Abnormal mammogram of right breast Hemorrhoids Osteopenia Surgical History H/O blepharoplasty History of breast biopsy Family History Brother Cancer brain tumor Grandmother Diabetes Grandmother Diabetes Hypertension Heart disease Mother Arthritis Social History current occupational status: retired current occupation: Retired Smoking Status: Never smoker alcohol intake: never substance use type: does not use caffeine: Yes what type of physical activity do you participate in: walking and weight training frequency: 5-6 times per week seatbelt use: always do you feel safe at home: Yes additional social history: [place] Seasonal at [facility] there is summer History 2 Elective abortions Hx Para 2 Spontaneous abortions Hx # Term Pregnancies Ectopic pregnancies Hx # Pregnancies Multiple births # of living children Past Pregnancies Del. Date Name GA/Weeks Outcome Route Bth Weight Infant Gen Labor Lgth Anesthesia Del Locatn Provider FOB Unknown 1984 Rohini Unknown 1985 Yasmin [facility] Encounter for routine gynecological examination Details: BAILEY SOUTH is a 68 year old who presents for annual exam. Denies concerns Last PAP: NA History of abnormal PAP: no Last mammogram: today pending History of abnormal mammogram: benign bx Colon cancer screenin Other preventative health care screenings: Wilner Vance Constitutional: Denies fatigue, weight gain or weight loss Cardio Card: Denies chest pain Resp Resp: Denies cough or dyspnea on exertion GI GI: Denies abdominal pain, bloating, change in stool character, constipation or vomiting : Reports as per HPI; Denies difficulty voiding, pelvic pain, urinary frequency, urinary incontinence, urinary urgency, vaginal discharge or vaginal pruritus Exam Const General: cooperative, healthy appearing, no acute distress and well developed Orientation: alert, oriented to person and oriented to place HENWA Head: normal to inspection Neck Neck: normal visual inspection Thyroid: thyroid normal Lymphatic: no lymphadenopathy noted Chest Breast inspection: normal inspection of the breasts and normal inspection of the axillae Breast palpation: normal palpation of the breasts, normal palpation of the axillae and no axillary lymphadenopathy Resp Effort Inspection: normal respiratory effort GI Palpation: soft, no masses and nontender Rectal Exam: abnormal sphincter tone decreased and visual inspection abnormal other (thin pale skin around anus) External Female Exam: normal external appearance and normal appearance of the urethra Urethra: normal appearance of the urethra and normal palpation Speculum Exam - Vagina: normal vaginal discharge and vagina atrophic Speculum Exam - Cervix: normal appearance of the cervix (more content not included)... Normal [facility] SCRN MAMM (CAD)W/LYNDSAY BILATo n 06-08-2024 SCRN MAMM (CAD)W/LYNDSAY BILAT [facility] Imaging Services [address] [place], [place] [address] SCRN MAMM (CAD)W/LYNDSAY BILAT MR#: [id number] Acct: [id number] Name: BAILEY SOUTH Rep #: [id number] : 1955 F 68 From: Vin brown MD PCP: Dr. Kathryn Darby MD Status: [facility] Study: SCRN MAMM (CAD)W/LYNDSAY BILAT Date of Exam: 05/12 08/04 Exam# [id number] Ordering Dr: Janice Estarda LOAD OUT PERSON LOAD OUT PERSON -[id number] MAMMOGRAPHY - BILATERAL SCREENING REASON FOR EXAM: Female, 68 years old. Routine annual screening examination. PERTINENT HISTORY: Non-contributory. TECHNIQUE: Digital bilateral breast lyndsay (3D mammographic acquisition) in the CC and MLO projections. 2-D mediolateral oblique (MLO) and craniocaudad (CC) views of both breasts were obtained. CAD: Full Field Digital Mammography with Computer Added Detection was performed. COMPARISON: Comparison is made with prior study dated June 06, 2023 and May 29, 2022. FINDINGS: Breast Composition: There are scattered areas of fibroglandular density. There are no dominant masses or suspicious calcifications. A tissue clip marker is once again seen in the retroareolar region of the right breast. This is within a tiny linear density. Stable small benign-appearing bilateral axillary lymph nodes. No other significant abnormalities are identified. There has been no significant change since the prior study. BI/SCRN MAMM (CAD)W/LYNDSAY BILAT IMPRESSION: Stable bilateral screening mammogram. Yearly follow-up mammogram recommended. (A) ASSESSMENT CATEGORY: BIRADS Category 2: Benign. A letter regarding these results will be sent to the patient by the facility within 30 days. Approximately 10% of breast cancers are not detected by mammography. A normal mammogram should not delay biopsy of a clinically suspicious abnormality. [id number] Electronically Signed: Vin Cota MD at 10:07 EDT , CC: DANIKA Estrada; Dr. Kathryn Darby MD [employer]: Signed Normal [facility] CORONAVIRUS PCR [CCL]on 11-12 SEND TO IC? YES Normal [facility] Comment on above: Performed By: #### [id number] #### [facility],[address] [place] [address] COVID 19 Result LOAD OUT PERSON Negative Normal [facility] Comment on above: Result Comment: Nega tive for COVID19 (SARS CoV2) by PCR. This test was developed and its performance characteristics determined by [facility]'s [facility]. This test has been authorized by FDA under an Emergency Use Authorization (EUA). This test has been validated in accordance with the FDA's Guidance Document Policy for Diagnostics Testing in Laboratories Certified to Perform High Complexity Testing under CLIA prior to Emergency use Authorization for Coronavirus Disease 2019 during the Public Health Emergency issued on January 09, [place] [address] Jack Short III, M.D. [id number] Performed By: #### [id number] #### [facility],[address] [place], [place] [id number] COVID 19 Source LOAD OUT PERSON NASAL SWAB Normal [facility] Comment on above: Performed By: #### [id number] #### [facility],[address] [place], [place] [id number] PTOSIS VISUAL FIELD OU (BOTH EYES) [facility] Vital Signs Date Time Vital Sign Value Performing Clinician Facility 06-09-2025 13:10-0400 Body height 152.[address] Geetha Simpson MD Work Phone: [facility] 06-09-2025 13:06-0400 Body mass index (BMI) [Ratio] 24.8 kg/m2 Dr. Geetha Simpson MD Work Phone: [facility] 06-09-2025 13:06-0400 Body weight 57.[address] Geetha Simpson MD Work Phone: [facility] 06-09-2025 13:06-0400 Diastolic blood pressure 83 mm[Hg] Dr. Geetha Simpson MD Work Phone: [facility] 06-09-2025 13:06-0400 Systolic blood pressure 132 mm[Hg] Dr. Geetha Simpson MD Work Phone: [facility] 07-09-2023 14:42-0400 Body height 152.[address] Kathryn Darby Work Phone: [facility] 07-09-2023 14:42-0400 Body mass index (BMI) [Ratio] 25.4 kg/m2 Dr. Kathryn Darby Work Phone: [facility] 07-09-2023 14:42-0400 Body temperature 97.4 [degF] Dr. Kathryn Darby Work Phone: [facility] 07-09-2023 14:42-0400 Body weight 58.[address] Kathryn Darby Work Phone: [facility] 07-09-2023 14:42-0400 Diastolic blood pressure 79 mm[Hg] Dr. Kathryn Darby Work Phone: [facility] 07-09-2023 14:42-0400 Heart rate 64 /min Dr. Kathryn Darby Work Phone: [facility] 07-09-2023 14:42-0400 Respiratory rate 17 /min Dr. Kathryn Darby Work Phone: [facility] 07-09-2023 14:42-0400 SaO2% (BldA) [Mass fraction] 96 % Dr. Kathryn Darby Work Phone: [facility] 07-09-2023 14:42-0400 Systolic blood pressure 134 mm[Hg] Dr. Kathryn Darby Work Phone: [facility] 06-06-2023 08:21-0400 Body height 153.[address] Kathryn Darby Work Phone: [facility] 06-06-2023 08:15-0400 Body mass index (BMI) [Ratio] 24.6 kg/m2 Dr. Kathryn Darby Work Phone: [facility] 06-06-2023 08:15-0400 Body weight 58.[address] Kathryn Darby Work Phone: [facility] 06-06-2023 08:15-0400 Diastolic blood pressure 82 mm[Hg] Dr. Kathryn Darby Work Phone: [facility] 06-06-2023 08:15-0400 Systolic blood pressure 128 mm[Hg] Dr. Kathryn Darby Work Phone: [facility] 05-01-2023 12:47-0400 Body height 154.9 cm Pacc 1 Work Phone: [facility] 05-01-2023 12:47-0400 Body temperature 97.81 [degF] Pacc 1 Work Phone: [facility] 05-01-2023 12:47-0400 Body weight 58.97 kg Pacc 1 Work Phone: [facility] 05-01-2023 12:47-0400 Diastolic blood pressure 70 mm[Hg] Pacc 1 Work Phone: [facility] 05-01-2023 12:47-0400 Heart rate 57 /min Pacc 1 Work Phone: [facility] 05-01-2023 12:47-0400 SaO2% (BldA) [Mass fraction] 99 % Pacc 1 Work Phone: [facility] 05-01-2023 12:47-0400 Systolic blood pressure 118 mm[Hg] Pacc 1 Work Phone: [facility] Encounters Encounter Date Encounter Type Care Provider Facility Start: 06-09-2025 End: 06-09-2025 Patient encounter status Janice GARNICA [facility] Start: 06-09-2025 End: 06-09-2025 ambulatory Janice Estrada Facility:[facility] Start: 06-09-2025 End: 06-09-2025 Patient encounter procedure Janice GARNICA [facility] Work Phone: Start: 10-01-2024 End: 10-01-2024 ambulatory Geetha Simpson Facility:[facility] Start: 10-01-2024 End: 10-01-2024 ambulatory Geetha Simpson Facility:[facility] Start: 09-03-2024 Encounter for genera l adult medical examination without abnormal findings Eula Cole [facility] Start: 08-20-2024 ambulatory José Miguel Toledo Facility:[facility] Start: 08-20-2024 End: 08-20-2024 ambulatory Eula Dantenoris Facility:[facility] Start: 08-04-[address] Eliud Simpson MD Work Phone: [facility] Start: 08-04-2024 End: 08-04-2024 ambulatory Eula Cole Facility:[facility] Start: 08-04-2024 End: 08-04-2024 [facility] Start: 07-20-2024 End: 07-20-2024 ambulatory SELF Facility:[facility] Start: 07-20-2024 End: 07-20-2024 Patient encounter procedure Merry Cruz OD Work Phone: Optometry Comment on above: Hyperopia of both ey es (Primary Dx); Regular astigmatism of both eyes; Presbyopia Start: 07-18-2024 End: 07-18-2024 Emergency department patient visit Dwight Rosales Facility:[facility] Start: 06-08-2024 Encounter for gynecological examination (general) (routine) with abnormal findings Janice [facility] Start: 06-08-2024 End: 06-08-2024 ambulatory [facility] Facility:[facility] Start: 06-08-2024 End: 06-08-2024 ambulatory [facility] Facility:[facility] Start: 07-25-2023 End: 07-25-2023 ambulatory KATHRYN DARBY Facility:[facility] Start: 07-25-2023 End: 07-25-2023 Patient encounter procedure Colby Cruz OD Work Phone: Optometry Comment on above: Hyperopia of both ey es (Primary Dx); Regular astigmatism of both eyes; Presbyopia; Combined forms of age-related cataract of both eyes Start: 07-09-2023 End: 07-09-[address] Kathryn Darby Work Phone: [facility] Work Phone: Start: 07-09-2023 End: 07-09-[address] Kathryn Darby Work Phone: [facility] Work Phone: Start: 07-09-2023 End: 07-09-[address] Kathryn Darby Work Phone: [facility]Out[facility] Work Phone: Start: 07-02-2023 End: 07-02-2023 Patient encounter procedure Susanna Pappas MD Work Phone: Ophthalmology Comment on above: Post-operative state (Primary Dx) Start: 06-06-2023 End: 06-06-[address] Kathryn Darby Work Phone: [facility] Work Phone: Start: 06-06-2023 End: 06-06-[address] Kathryn Darby Work Phone: [facility] Work Phone: Start: 05-24-2023 End: 05-24-2023 Patient encounter procedure Elisha Charles PA-C Work Phone: Ophthalmology Comment on above: Post-operative state (Primary Dx) Start: 05-01-2023 End: 05-01-2023 Admission to establishment [facility] 1 [facility] Start: 05-01-2023 End: 05-01-[facility] Work Phone: Pre Anest[facility] Comment on above: Pre-operative examin ation (Primary Dx) Start: 05-01-2023 End: 05-01-2023 [facility] Work Phone: [facility] Start: 11-27-2022 Telephone encounter Susanna Pappas MD Work Phone: Ophthalmology Comment on above: Schedule Surgery Start: 10-31-2022 End: 10-31-2022 Patient encounter procedure Susanna Pappas MD Work Phone: Ophthalmology Comment on above: Dermatochalasis of b oth upper eyelids (Primary Dx); 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 Kathryn Darby Work Phone: Start: 06-06-2023 Screening mammography Roger Darby Work Phone: Start: 10-31-2022 Visual field xm uni/ bi w/interp intermed exam Roberto Jiang APRN.KNITTER HAND Work Phone: Start: 10-21-2019 Colonoscopy Colby herrera II, OD Work Phone: Start: 01-21-2017 Mammography Colby herrera II, OD Work Phone: Start: 02-12-2015 Lipid 1996 panel - S claudia or Plasma Cobly Cruz II, OD Work Phone: Plan of Treatment Date Care Activity Detail Author Start: 10-21-2029 Colonoscopy COLONOSCOPY [facility] Start: 10-21-2029 COLORECTAL CANCER SCREENING COLORECTAL CANCER SCREENING [facility] Start: 10-21-2029 Screening for malignant neoplasm of colon [facility] Start: 06-09-2025 MG Breast - bilateral Screening [facility] Start: 06-09-2025 Screening mammography SCRN MAMM (CAD)W/LYNDSAY BILAT [facility] Start: 07-12-2024 Covid-19 Vaccine ( season) Covid-19 Vaccine () [facility] Start: 07-12-2024 Influenza vaccination Influenza Vaccine (#1) [facility] Start: 11-11-2023 Advance Directive Discussion Advance Directive Discussion [facility] Start: 07-12-2023 Influenza vaccination [facility] Start: 06-06-2023 Patient referral [facility] Work Phone: Start: 11-11-2022 ADVANCE DIRECTIVE DISCUSSION ADVANCE DIRECTIVE DISCUSSION [facility] Start: 11-11-2022 DEPRESSION ASSESSMENT DEPRESSION ASSESSMENT [facility] Start: 07-12-2022 Influenza vaccination INFLUENZA (#1) [facility] Start: 01-27-2022 COVID-19 VACCINE (4 - Booster for Moderna series) COVID-19 VACCINE (4 - Booster for Moderna series) [facility] Start: 11-24-2021 COVID-19 VACCINE (4 - Booster for Moderna series) COVID-19 VACCINE (4 - Booster for Moderna series) [facility] Start: 11-24-2021 COVID-19 VACCINE (4 - Moderna series) COVID-19 VACCINE (4 - Moderna series) [facility] Start: 11-11-2021 ADVANCE DIRECTIVE DISCUSSION ADVANCE DIRECTIVE DISCUSSION [facility] Start: 11-11-2021 DEPRESSION ASSESSMENT DEPRESSION ASSESSMENT [facility] Start: 2021 Pneumococcal Vaccine: 65+ (1 - PCV) Pneumococcal Vaccine: 65+ (1 - PCV) [facility] Start: 2021 Pneumococcal Vaccine: 65+ (1 of 1 - PCV) Pneumococcal Vaccine: 65+ (1 of 1 - PCV) [facility] Start: 2021 PNEUMOCOCCAL: 65+ (1 - PCV) PNEUMOCOCCAL: 65+ (1 - PCV) [facility] Start: 02-13-2020 Lipid 1996 panel - Serum or Plasma Lipid Screening [facility] Start: 02-13-2020 Lipid panel Lipid Screening [facility] Start: 02-13-2020 LIPID SCREEN LIPID SCREEN [facility] Start: 03-10-2019 [facility]rine [facility]album[facility] Start: 02-12-2018 DIABETES SCREEN DIABETES SCREEN [facility] Start: 02-12-2018 Diabetes Screening Diabetes Screening [facility] Start: 01-21-2018 Mammography [facility] Start: 01-21-2018 Screening for malignant neoplasm of breast Mammogram Screening [facility] Start: 01-27-2017 FECAL OCCULT BLOOD FECAL OCCULT BLOOD [facility] Start: 01-27-2017 Screening for malignant neoplasm of colon Fecal Occult Blood [facility] Start: 2016 RSV Vaccine (1 - 1-dose 60+ series) RSV Vaccine (1 - 1-dose 60+ series) [facility] Start: 2006 SHINGRIX VACCINE (1 of 2) SHINGRIX VACCINE (1 of 2) [facility] Start: 2001 COLOGUARD (FIT-DNA) COLOGUARD (FIT-DNA) [facility] Start: [address] COLONOGRAPHY [facility] Start: 2001 Screening for malignant neoplasm of colon [facility] Start: 2001 SIGMOIDOSCOPY SIGMOIDOSCOPY [facility] Start: 1974 Anxiety Screening Anxiety Screening [facility] Start: 1974 Depression Screening Depression Screening [facility] Start: 1974 HEPATITIS C SCREENING HEPATITIS C SCREENING [facility] Start: 1974 Hepatitis C screening Hepatitis C Screening [facility] Start: 1968 Adult depression screening assessment DEPRESSION SCREENING [facility] DXA Bone [Mass/Area] Bone density [facility] DXA Bone [Mass/Area] Bone density [facility] Electrocardiographic procedure [facility] Patient referral [facility] Work Phone: [facility] Immunizations Immunization Date Immunization Notes Care Provider Fa cili 09-29-2021 Covid (Moderna) Dr. Geetha sebastian MD Work Phone: [facility] 02-08-2021 Covid (Moderna) Dr. Geetha sebastian MD Work Phone: [facility] 01-12-2021 Covid (Moderna) Dr. Geetha sebastian MD Work Phone: [facility] 12-19-[address] Geetha Simpson MD Work Phone: [facility] 10-13-[address] Geetha Simpson MD Work Phone: [facility] 03-10-2009 tetanus toxoid, reduced diphtheria toxoid, and acellular pertussis vaccine, adsorbed Colby Cruz II, OD Work Phone: [facility] Work Phone: Payers Date Payer Category Payer Self-pay [id number] 2022 Medicare AET[employer] MEDICARE A ETNA MEDICARE PPO [id number] 2022-Present [phone] [address] [place] [address] PPO [id number] 2022 Unknown [employer] OF [place] [employer]ISION [id number] 03/11/2022-Present [address] [place] [address] Indemnity [id number] 03-11-2022 Private Health Insurance [id number] 03-11-2022 Unknown [id number] 1955 Unknown [id number] Medicare MEDICARE PART A B [id number] Unknown [id number] Unknown Rachelle PALENCIA/BIANCA BRUSH [id number] Unknown [id number] Unknown [id number] Unknown [id number] 462 Unknown [id number] 462 Unknown [id number] 462 Unknown [id number] 462 Unknown [id number] 462 Unknown [id number] 462 Unknown [id number] 462 Unknown [id number] 462 Unknown [id number] 462 Social History Date Type Detail Facility Start: 10-01-2024 Tobacco smoking stat us NHIS Never smoked tobacco [facility] Start: 07-24-2022 End: 07-20-2024 Alcohol intake Current drinker of alcohol (finding) [facility] Start: 12-24-2011 History SDOH Alcohol Comment rarely-once yearly [facility] Start: 1955 Sex Assigned At Not on file C [facility] Start: 07-14-2022 End: 07-24-2022 Exposure to SARS-CoV-2 (event) Not sure [facility] Start: 05-17-2023 End: 07-25-2023 History of Social function [facility] Start: 05-17-2023 End: 07-25-2023 Tobacco use panel [facility] National Score (1-10 0), lower number is lower risk 57 [facility] Start: 06-06-2023 End: 07-09-2023 Tobacco smoking status NHIS Unknown if ever smoked [facility] Start: 10-20-2019 Non-smoker [facility] Start: 1955 Sex Assigned At Female [facility] Clinical Notes 01-31-2016 to 07-20-2024 Patient InstructionsCoMerry pineda, APOLLO - 07/20/2024 8:49 AM EDTPatient InstructionsCoColby pineda II, OD - 07/25/2023 9:37 AM EDTPatient InstructionsPatient InstructionsPatient Instructions Note Date & Type Note Facility 07-20-2024 Instructions Merry Cruz, APOLLO - 07/20/2024 8:51 AM EDT ASSESSMENT/PLAN: 1. Hyperopia of both eyes - ICD9: 367.0, ICD10: H52.03 (primary diagnosis) 2. Regular astigmatism of both eyes - ICD9: 367.21, ICD10: H52.223 3. Presbyopia - ICD9: 367.4, ICD10: H52.4 Continue to wear her glasses as desired. Continue to wear her contact lenses on a daily basis and replacing them with each use. Continue to monitor her ocular health. Recommended yearly exams. documented in this encounter [facility] 07-20-2024 Note HNO ID: [id number] Author: MERRY CRUZ OD Service: ? Author Type: DIRECTOR OF OPERATIONS SUPPORT Type: Progress Notes Filed: 07/20/2024 08:53 Note Text: ASSESSMENT/PLAN: 1. Hyperopia of both eyes - ICD9: 367.0, ICD10: H52.03 (primary diagnosis) 2. Regular astigmatism of both eyes - ICD9: 367.21, ICD10: H52.223 3. Presbyopia - ICD9: 367.4, ICD10: H52.4 Continue to wear her glasses as desired. Continue to wear her contact lenses on a daily basis and replacing them with each use. Continue to monitor her ocular health. Recommended yearly exams. Merry Cruz, APOLLO I have confirmed and edited as necessary the relevant ophthalmic history, ROS, and the neuro exam findings as obtained by others [facility] 07-20-2024 History of Presen t illness Narrative ASSESSMENT/PLAN: 1. Hyperopia of both eyes - ICD9: 367.0, ICD10: H52.03 (primary diagnosis) 2. Regular astigmatism of both eyes - ICD9: 367.21, ICD10: H52.223 3. Presbyopia - ICD9: 367.4, ICD10: H52.4 Continue to wear her glasses as desired. Continue to wear her contact lenses on a daily basis and replacing them with each use. Continue to monitor her ocular health. Recommended yearly exams. Merry Cruz OD I have confirmed and edited as necessary the relevant ophthalmic history, ROS, and the neuro exam findings as obtained by others documented in this encounter [facility] 07-25-2023 Instructions Colby Cruz II, OD - 07/25/2023 9:38 AM EDT Assessment and Plan H52.03 Hyperopia of both eyes (primary encounter diagnosis) H52.223 Regular astigmatism of both eyes H52.4 Presbyopia Comment: Ocular health maintained with contact lens use. Hopkins in monovision contacts and multifocal glasses stable. Recheck in one year. H25.813 Combined forms of age-related cataract of both eyes Comment: Mild cataract in both eyes. Well tolerated at this time. Monitor as instructed. I have confirmed and edited as necessary the relevant ophthalmic history, ROS, and the neuro exam findings as obtained by others. I have seen and examined Bailey South. I have discussed the case and the management of this patient's care with the Resident/Fellow, if applicable. I also have reviewed and agree with the assessment and plan as stated above and agree with all of its relevant components. Colby Cruz II, OD documented in this encounter [facility] 07-25-2023 Note HNO ID: [id number] Author: Colby Cruz II, OD Service: ? Author Type: DIRECTOR OF OPERATIONS SUPPORT Type: Progress Notes Filed: 07/25/2023 9:39 AM Note Text: Assessment and Plan H52.03 Hyperopia of both eyes (primary encounter diagnosis) H52.223 Regular astigmatism of both eyes H52.4 Presbyopia Comment: Ocular health maintained with contact lens use. Hopkins in monovision contacts and multifocal glasses stable. Recheck in one year. H25.813 Combined forms of age-related cataract of both eyes Comment: Mild cataract in both eyes. Well tolerated at this time. Monitor as instructed. I have confirmed and edited as necessary the relevant ophthalmic history, ROS, and the neuro exam findings as obtained by others. I have seen and examined Bailey South. I have discussed the case and the management of this patient's care with the Resident/Fellow, if applicable. I also have reviewed and agree with the assessment and plan as stated above and agree with all of its relevant components. Colby Cruz II, OD [facility] 07-25-2023 History of Presen t illness Narrative Assessment and Plan H52.03 Hyperopia of both eyes (primary encounter diagnosis) H52.223 Regular astigmatism of both eyes H52.4 Presbyopia Comment: Ocular health maintained with contact lens use. Hopkins in monovision contacts and multifocal glasses stable. Recheck in one year. H25.813 Combined forms of age-related cataract of both eyes Comment: Mild cataract in both eyes. Well tolerated at this time. Monitor as instructed. I have confirmed and edited as necessary the relevant ophthalmic history, ROS, and the neuro exam findings as obtained by others. I have seen and examined Bailey Duran Brannon. I have discussed the case and the management of this patient's care with the Resident/Fellow, if applicable. I also have reviewed and agree with the assessment and plan as stated above and agree with all of its relevant components. Colby Cruz II, OD documented in this encounter [facility] 07-02-2023 Instructions Susanna Pappas MD - 07/02/2023 11:42 AM EDT Can stop ointment Right upper lid and left upper lid medial scar: appropriate scarring; should fade over time Can use silicone scar gel on incisions twice a day to help with redness/scarring Numbness/pricking eyelashes: should continue to improve - Can consider Botox for brow lift (lasts 3 mo, also cosmetic). Botox takes 1 week to set in lasts 3-4 mo, cost $12.50/unit, typical dose 25-35 units $300-450 Discussed risk of bruising, spread to cause droopy eyelid,double vision, rare allergic reaction, rare generalized weakness with neurological disorders eg. Eaton Lambert syndrome F/u as needed Outcome: S/P Eyelid Surgery Outcomes: Symmetry excellent Post-op Diagnoses: None 2. General eye care Dr. Cruz documented in this encounter [facility] 07-02-2023 History of Presen t illness Narrative Pt here for s/p bul bleph on 05/17/23 Pt states her lids are doing well. She states when she puts her mascara on, she feels little pin pricks at the base of the lash. A/P: 1. s/p bul bleph on 05/17/23 Doing well at this time. Excellent result Patient happy with results Exam: Healed well Fine bumps on Right upper lid medial and left upper lid medial; expected , no sign of infection R>L brow ptosis Can stop ointment Right upper lid and left upper lid medial scar: appropriate scarring; should fade over time Can use silicone scar gel on incisions twice a day to help with redness/scarring Numbness/pricking eyelashes: should continue to improve - Can consider Botox for brow lift (lasts 3 mo, also cosmetic). Botox takes 1 week to set in lasts 3-4 mo, cost $12.50/unit, typical dose 25-35 units $300-450 Discussed risk of bruising, spread to cause droopy eyelid,double vision, rare allergic reaction, rare generalized weakness with neurological disorders eg. Eaton Lambert syndrome F/u as needed Outcome: S/P Eyelid Surgery Outcomes: Symmetry excellent Post-op Diagnoses: None 2. General eye care Dr. Cruz The documentation for this note was completed by Roberto Jiang APRN, CNP acting as a scribe for Susanna Pappas MD. 07/02/2023 11:41 AM. I have confirmed and edited as necessary the relevant ophthalmic history, ROS, and the neuro exam findings as obtained by others. I have seen and examined Bailey South. I have discussed the case and the management of this patient's care with the Resident/Fellow, if applicable. I also have reviewed and agree with the assessment and plan as stated above and agree with all of its relevant components. I, Susanna Pappas MD, personally performed the services described in this documentation. All medical record entries made by the scribe were at my direction and in my presence. I have reviewed the chart and discharge instructions (if applicable) and agree that the record reflects my personal performance and is accurate and complete. Electronically Signed: Susanna Pappas MD, July 02, 2023 11:41 AM. documented in this encounter [facility] 05-24-2023 History of Presen t illness Narrative A/P: 1. POW#1 s/p bul bleph on 05/17/[address] Pappas Doing well at this time. Exam: Anticipated postsurgical ecchymosis and edema Incisions healing well No erythema or warmth Good contour of eyelids No lagophthalmos Removed sutures today without complication; pt tolerated well. No sign of infection. Post-operative state Decrease erythromycin ointment to incisions twice daily x 1 more week, then stop. Ok to use artifical tears as needed Warm compresses until edema resolves. May resume normal activities. May resume medications Follow up in [address] Pappas or sooner PRN. I have confirmed and edited as necessary the relevant ophthalmic history, ROS, and the neuro exam findings as obtained by others. I have seen and examined Bailey Duran Brannon. I have discussed the case and the management of this patient's care with the attending, if applicable. I also have reviewed and agree with the assessment and plan as stated above and agree with all of its relevant components. I, Elisha Charles PA-C, personally performed the services described in this documentation. Electronically Signed: Elisha Charles PA-C, May 24, 2023 11:41 AM. documented in this encounter [facility] 05-24-2023 Instructions Elisha Charles PA-C - 05/24/2023 11:29 AM EDT Post-operative week one instructions: Continue antibiotic ointment to incisions twice a day for one more week, then stop. It is normal for the ointment to blur your vision. In two weeks, you may use over the counter 100% silicone scar gel (ScarAway) to incisions twice daily Use warm compresses as needed until swelling resolves You may shower normally and allow the water to run down your face, continue to use caution when cleansing around your eyelids and incisions, pat the area dry gently (do not rub) You may gradually resume normal activities; be mindful. If discomfort or swelling develop in the surgical site during an activity, stop that activity You may resume all medications including vitamins and supplements No swimming for one more week You may resume contact lens use in one week If you wear eye makeup, you may resume doing so in one week You may use artifical tear eye drops over the counter (Systane, Refresh, Optive, Blink, etc.) as needed for dryness or irritation of your eyes Follow-up with Dr. Susanna Pappas in approximately 4-6 weeks, sooner if you are having problems or concerns. Please call with any questions or concerns: Dr. Susanna Pappas at weekdays from 8am- 5pm. If you have an emergency during non-business hours, please call or , ext [phone] and ask for the eye doctor civil division commander deputy sheriff. documented in this encounter [facility] 05-01-2023 Instructions Beth Brady APRN.KNITTER HAND - 05/01/2023 1:01 PM EDT PATIENT PREOPERATIVE INSTRUCTIONS Susanna Pappas MD has scheduled you for your procedure at this surgery center: [facility]: [phone] --[address] [facility]. [facility] [place] [address]. Please read below carefully for your personalized instructions. Dietary Restrictions: - No solid food after midnight. - You may have 12 ounces of clear liquids (water, clear juices such as apple juice or gatorade, carbonated beverages, clear tea, black coffee, jello) until 2 hours before scheduled arrival at facility. No red/purple coloring and no creamer/sugar Medications: Unless instructed differently below, stay on all of your medications until your surgery. Approved medications to take the morning of surgery with a sip of water: NONE If you start any new medications after today's visit, please contact the surgeon's office. Blood Thinning Medications: - Stop NSAIDS (Ibuprofen, Advil, Aleve, Motrin, Celebrex, Mobic, etc.) 7 days before surgery, as directed by your surgeon. - Stop Aspirin 7 days before surgery, as directed by your surgeon. - Stop Vitamin E, ALL multi-vitamins, herbals and dietary supplements 7 days before surgery. - You may take Tylenol (Acetaminophen) or any of your pain medications that do not contain aspirin or NSAIDS as needed. Important Reminders: - Candy, mints, and tobacco products are NOT permitted the morning of surgery. - Hearing aids, dentures and glasses may be worn the morning of surgery. - NO jewelry, body piercings, makeup, hairpins or contacts are to be worn the day of surgery. If you develop symptoms such as a fever, cold, or flu, or have other changes to your health within TWO DAYS of scheduled surgery or the morning of surgery, please contact the surgery center above. Personal Belongings: -Please have photo ID and insurance cards. -If you do not have a copy of advance directives on file with us, please bring a copy with you on the day of surgery. - Leave ALL valuables and money at home or with family members. For Outpatient Procedures: - YOU MUST HAVE A RESPONSIBLE FREIGHT RATE CLERK TAKE YOU HOME. A RADIO DISPATCHER OR FORM BLOCK MAKER CANNOT BE MADE A RESPONSIBLE FREIGHT RATE CLERK. - We recommend that a responsible person stays with you overnight to take care of you. - You cannot stay in a hotel alone after outpatient surgery. You will not be permitted to have your surgery, if you do not have someone to take care of you. Arrival Time for Surgery: - The Surgery Center or hospital where you are having surgery will call the afternoon before surgery (or Saturday for Saturday surgery) with a scheduled arrival time. - If you have not heard by 4 pm, please contact the surgery center above. Please be aware that emergency situations arise, which may delay or change your surgical time. If this happens, we will notify you as soon as possible and regret any inconvenience. If you already have an Advance Directive, please fax a copy to [phone] or email to for it to be added to your chart. If you do not have an Advance Directive, you can find the appropriate form and more information at [email or web address]. We recommend that you complete the Advance Directive form found on the website and bring it with you the day of your surgery. It can be witnessed and scanned into your chart that day. Beth Brady APRN.CNP documented in this encounter [facility] 05-01-2023 History and physical note Images from the original note were not included. HISTORY AND PHYSICAL EXAMINATION SERVICE DATE: 05/01/2023 SERVICE TIME: 1:17 PM PRIMARY CARE PHYSICIAN: Kathryn Darby MD REASON FOR VISIT: Bailey South is a 67 year old female who is scheduled for Procedure(s): BLEPHAROPLASTY UPPER MEDICALLY NECESSARY (Bilateral) at the request of Dr. Susanna Pappas for consultation. My final recommendation will be communicated back to the requesting physician by way of shared medical record or letter. Subjective The patient has the following: ACTIVE PROBLEM LIST Osteopenia Hyperopia Regular Astigmatism Presbyopia Nuclear Sclerotic Cataract of Both Eyes Floaters Posterior Vitreous Detachment of Right Eye COVID-19 Immunization Status Overdue - COVID-19 VACCINE (4 - Booster for Moderna series) Overdue since 11/24/2021 09/29/2021 Imm Admin: COVID-19 original vaccine, full dose, monovalent (MODERNA) 02/08/2021 Imm Admin: COVID-19 original vaccine, full dose, monovalent (MODERNA) 01/12/2021 Imm Admin: COVID-19 original vaccine, full dose, monovalent (MODERNA) CHIEF COMPLAINT: Pre-op exam HPI: Bailey South is a 67 year old seen for PAC due to scheduled above surgery because myogenic ptosis bilateral eyelids. 10/31/2022, Dr. Pappas A/P: 1. Heavy upper eyelids Feels that eyelids block vision and sees better when lifted especially when driving and reading Referred by Dr. Cruz H/o bells palsy in past ? Right or left No double vision No issues eating/swallowing No H/o contact lens use Exam: R>L Brow ptosis + skin on lashes Facial asymmetry AL: 30, 33 LF: 15, 15 Margin to reflex distance 1: 2.5, 2.5 Margin to reflex distance 2: 5, 4 Ptosis visual field diff: 20, 21 Pupils symmetric Extraocular muscles full, no diplopia Sle: Cornea clear both eyes No Superficial punctate keratopathy (SPK) No conjunctival injection both eyes No a/c reaction both eyes Iris within normal limits both eyes Patient has brow ptosis lower than orbital rims, especially laterally -Without brow lift there will be suboptimal improvement of heavy upper lids. Discussed options: R>L brow ptosis ? 2/2 h/o bells palsy - Can consider Botox for brow lift (lasts 3 mo, also cosmetic). Botox takes 1 week to set in lasts 3-4 mo, cost $12.50/unit, typical dose 25-35 units $300-450 Discussed risk of bruising, spread to cause droopy eyelid,double vision, rare allergic reaction, rare generalized weakness with neurological disorders eg. Eaton Lambert syndrome Consider bilateral upper lid blepharoplasty, will still have some heaviness 2/2 brow ptosis, but hopefully improved. Need certain amt of skin to close eyes. REVIEW OF SYSTEMS: General: No weight loss, malaise or fevers. Neurological: No history of TIA's, stroke, RANGER AIDE tumor, impaired sensorium, hemiplegia, paraplegia or quadraplegia. No neurological symptoms or problems. Respiratory: No history of current cough or dyspnea, or pneumonia in the past 6 weeks. No history of respiratory/pulmonary symptoms or problems. Cardiovascular: No history of HTN requiring medication, no history of angina, CHF, SD, cardiac surgery or stents. Denies rest pain, gangrene or revascularization/amputation for PVD. No history of cardiovascular symptoms or problems. GI: No history of GI symptoms or problems. No history of esophageal varices, recent ascites, or ETOH greater than 2 drinks per day. : No history of dysuria, frequency or incontinence, stones or chronic kidney disease. No difficulty urinating, nocturia > 1 time per night or hematuria. Endocrine: No history of diabetes. Has not taken steroids within the past 30 days. No history of endocrinological symptoms or problems. Hematology: No history of bleeding or clotting disorder. Patient is not taking anti-coagulation or platelet medications. No history of hematological symptoms or problems. Oncology: No history of CA metastasis, chemo within 30 days, or radiotherapy within 90 days. No history of oncological symptoms or problems. Psych: No history of psychiatric symptoms or problems. Musculoskeletal: Negative for joint pain or swelling, back pain or muscle pain. Skin: Negative for lesions, rash and itching. PAST MEDICAL HISTORY Diagnosis Date Cataract Conjunctivitis Osteopenia 12/24/2011 Special screening for malignant neoplasms, colon PAST SURGICAL HISTORY Procedure Laterality Date COLONOSCOPY FLX DX W/COLLJ SPEC WHEN PFRMD 09/14/09 PAST SURGICAL HISTORY OF 08-06-00 right breast stero FAMILY HISTORY Problem Relation Age of Onset Coronary Artery Disease Father Arthritis Mother Cataract Mother other (Rheumatoid Arthritis) Daughter Diabetes Maternal Grandmother Stroke Paternal Grandmother TIA's Cancer Brother brain tumor Social History Tobacco Use Smoking status: Never Smokeless tobacco: Never Vaping Use Vaping Use: Never used Substance Use Topics Alcohol use: Yes Comment: rarely-once yearly Drug use: No Prior to Admission medications as of 05/01/23 1308 Medication Sig Last Dose Taking ZINC ACETATE ORAL Take by mouth. Taking Yes cholecalciferol, vitamin D3, (VITAMIN D3 ORAL) Take by mouth. Taking Yes Multivitamin capsule Take 1 capsule by mouth once daily. Taking Yes calcium carbonate (OS-FELICIA 500) 500 mg calcium (1,250 mg) tablet Take by mouth. Taking Yes No medication comments found. ALLERGIES No Known Allergies Objective PHYSICAL EXAM: General: alert and oriented (x3) and healthy appearance. Pertinent negatives noted - not distressed. Skin: normal color, no rash or lesions. HEENT: EOM intact and pupils equal round. Pertinent negatives noted - no carotid bruit. Cardiovascular: regular rate and rhythm, normal S1 and S2, no rub, murmurs, or gallop. Respiratory: normal breath sounds, no wheezes or crackles. No chest wall deformity or tenderness. Abdomen: soft. Pertinent negatives noted - not tender. Extremities: no deformity, no edema or tenderness, no joint swelling or clubbing. Neurological: normal cognition and motor skills. Gait normal. No weakness or sensory deficit. PAIN ASSESSMENT: VITALS: BP 118/70 Pulse 57 Temp (Src) 97.8 (Temporal Artery) Ht 5' 1 (1.55m) Wt 130 lb (59.0kg) SpO2 99% BMI 24.58 kg/(m^2). Diagnostic tests reviewed for today's visit: Lab Value Units Date High Low HB No results within date range. HCT No results within date range. WBC No results within date range. PLT No results within date range. NA No results within date range. K No results within date range. GLUC No results within date range. BUN No results within date range. CREAT No results within date range. PTSEC No results within date range. INR No results within date range. APTT No results within date range. ALT No results within date range. AST No results within date range. TBILI No results within date range. TSH No results within date range. Lab Value Units Date High Low HCGQT No results within date range. UHCG No results within date range. HCG, BODY* No results within date range. Lab Value Units Date High Low ABORHD No results within date range. ABSCREEN No results within date range. No results found for: HBA1C No results found for this or any previous visit (from the past 8760 hour(s)). No results found for this or any previous visit (from the past 84599 hour(s)). Assessment There is no known pertinent medical condition which may affect rosalva-operative course [place] Activity Status Index: METS: Climb a flight of stairs or walk up a hill (5.50 METs) DASI Score: 5.5 Patient denies any chest pain or undue shortness of breath with the above physical activity. Clinical Frailty Scale: 1. Very fit STOP-Bang Score: Denies snoring loudly Denies feeling tired, fatigued, or sleepy during the daytime Has not been observed to stop breathing or choking/gasping during sleep Denies having high blood pressure BMI less than or equal to 35 kg/m^2 Patient 50 years old or younger Does not have a large neck Non-male patient STOP-Bang Score: 0 [id number] Score: Age: 65-74 Sex: female CHF history: No Hypertension history: No Stroke/TIA/thromboembolism history: No Vascular disease history: No Diabetes history: No [id number] Score: 2 ARISCAT Score: Age: 51-80 Preoperative SpO2: >=96% Respiratory infection in the last month: No Preoperative anemia: Yes Surgical incision: peripheral Duration of surgery: <2 hrs Emergency procedure: No ARISCAT Score: 14 ASA Class: 1 ANESTHESIA FINDINGS: Intubation History: No history of difficult intubation Significant Anesthesia Considerations: none Airway History: No history of difficult airway I - PHYSICAL EVALUATION AIRWAY Patient intubated: No. Tracheostomy tube not present Mallampati: III. TM distance: >3 FB. Neck ROM: full ROM without neurological symptoms. Mouth opening: adequate. Short neck: no. Thick neck: no Morales present: no Lip Bite Test: II Microretrognathia/Micronagthia/R ecessed Chin: No DENTAL Dental findings: teeth intact. Additional comments: Cap/back. II - ANESTHESIA PLAN ASA Score: 1 Anesthetic Plan: other Anesthetic plan additional comments: *PACC/TCI - anesthesia choice. Beta Jovon Monitoring Plan Post Procedure Analgesic Plan Informed Consent Anesthetic risks, benefits, alternatives, personnel and consent discussed: yes. Patient / Responsible Libertarian agrees to proceed: yes Patient / Surrogate agrees to blood products: blood products not planned Discussed the possibility of lip / dental damage: yes Prepared for Surgery: optimally prepared for surgery. CONSULTS: Patient does not require consults for optimization at this time Planned Anesthetic: other anesthesia choice The Following Tests/Procedures Have Been Initiated: No orders of the defined types were placed in this encounter. Instructions Given to Patient: Instructions located in the after visit summary. Patient given verbal and written preop instructions and voices comprehension and compliance. SIGNATURE: Beth Brady APRN.CNP PATIENT NAME: Bailey South DATE: May 01, 2023 TIME: 12:59 PM PAGER/CONTACT #: documented in this encounter [facility] 11-27-2022 Miscellaneous Notes Called and LVM for patient to call [phone] to schedule surgery. 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 documented in this encounter [facility] 10-31-2022 Instructions Susanna Pappas MD - 10/31/2022 2:09 PM EST Patient has brow ptosis lower than orbital rims, especially laterally -Without brow lift there will be suboptimal improvement of heavy upper lids. Discussed options: R>L brow ptosis ? 2/2 h/o bells palsy - Can consider Botox for brow lift (lasts 3 mo, also cosmetic). Botox takes 1 week to set in lasts 3-4 mo, cost $12.50/unit, typical dose 25-35 units $300-450 Discussed risk of bruising, spread to cause droopy eyelid,double vision, rare allergic reaction, rare generalized weakness with neurological disorders eg. Eaton Lambert syndrome Consider bilateral upper lid blepharoplasty, will still have some heaviness 2/2 brow ptosis, but hopefully improved. Need certain amt of skin to close eyes. 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 The patient was offered a surgery/procedure at a [facility] facility. The surgeon/proceduralist and patient have discussed in detail the risk of exposure to and/or potential harm posed by the COVID-19 virus with having a surgery/procedure at this time versus the risk of delaying the surgery/procedure. It is not possible to know either the risk of delaying the surgery or procedure or chance of getting an infection with perfect accuracy, but a joint decision was made between the patient and the surgeon/proceduralist to proceed at this time with the scheduled surgery/procedure as indicated on the consent form. An extensive discussion of the risks, benefits, alternatives of the above surgeries was conducted with the patient. The patient understood the risks including, but not limited to: bleeding, infection, scarring, asymmetry, need for future additional surgery, poor cosmesis, worsening dry eyes, orbital hemorrhage causing loss of vision, nerve damage, muscle damage, double vision, complications of anesthesia including loss of life. Discussed with patient these surgeries in most cases are performed with resident and/or fellow participation at the level deemed fit by Dr. Pappas. Patient verbalizes an understanding. The patient wished to proceed with surgery. Post operative course reviewed. 1-2 wks of bruising and swelling. Ice compresses (ie: frozen peas in Ziploc bag with cloth between bag and skin) for15 min every hour for the first 3 days after surgery; then warm compresses as needed for bruising (from post op days 3-7) Avoid blood thinners including aspirin, Advil, Motrin, Aleve, vitamin E, fish oil at least 2 wks prior to surgery. Antibiotic ointment to eyes and incisions four times a day after surgery for 1 week. No heavy lifting over 15 lbs or any strenuous exercise for 1 wk after surgery. Walking is okay after surgery. documented in this encounter [facility] 10-31-2022 History of Presen t illness Narrative Comments Ptosis eval both eyes No eye drops No falls A/P: Heavy upper eyelids Feels that eyelids block vision and sees better when lifted especially when driving and reading Referred by Dr. Cruz H/o bells palsy in past ? Right or left No double vision No issues eating/swallowing No H/o contact lens use Exam: R>L Brow ptosis + skin on lashes Facial asymmetry AL: 30, 33 LF: 15, 15 Margin to reflex distance 1: 2.5, 2.5 Margin to reflex distance 2: 5, 4 Ptosis visual field diff: 20, 21 Pupils symmetric Extraocular muscles full, no diplopia Sle: Cornea clear both eyes No Superficial punctate keratopathy (SPK) No conjunctival injection both eyes No a/c reaction both eyes Iris within normal limits both eyes Patient has brow ptosis lower than orbital rims, especially laterally -Without brow lift there will be suboptimal improvement of heavy upper lids. Discussed options: R>L brow ptosis ? 2/2 h/o bells palsy - Can consider Botox for brow lift (lasts 3 mo, also cosmetic). Botox takes 1 week to set in lasts 3-4 mo, cost $12.50/unit, typical dose 25-35 units $300-450 Discussed risk of bruising, spread to cause droopy eyelid,double vision, rare allergic reaction, rare generalized weakness with neurological disorders eg. Eaton Lambert syndrome Consider bilateral upper lid blepharoplasty, will still have some heaviness 2/2 brow ptosis, but hopefully improved. Need certain amt of skin to close eyes. 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 The patient was offered a surgery/procedure at a [facility] facility. The surgeon/proceduralist and patient have discussed in detail the risk of exposure to and/or potential harm posed by the COVID-19 virus with having a surgery/procedure at this time versus the risk of delaying the surgery/procedure. It is not possible to know either the risk of delaying the surgery or procedure or chance of getting an infection with perfect accuracy, but a joint decision was made between the patient and the surgeon/proceduralist to proceed at this time with the scheduled surgery/procedure as indicated on the consent form. An extensive discussion of the risks, benefits, alternatives of the above surgeries was conducted with the patient. The patient understood the risks including, but not limited to: bleeding, infection, scarring, asymmetry, need for future additional surgery, poor cosmesis, worsening dry eyes, orbital hemorrhage causing loss of vision, nerve damage, muscle damage, double vision, complications of anesthesia including loss of life. Discussed with patient these surgeries in most cases are performed with resident and/or fellow participation at the level deemed fit by Dr. Pappas. Patient verbalizes an understanding. The patient wished to proceed with surgery. Post operative course reviewed. 1-2 wks of bruising and swelling. Ice compresses (ie: frozen peas in Ziploc bag with cloth between bag and skin) for15 min every hour for the first 3 days after surgery; then warm compresses as needed for bruising (from post op days 3-7) Avoid blood thinners including aspirin, Advil, Motrin, Aleve, vitamin E, fish oil at least 2 wks prior to surgery. Antibiotic ointment to eyes and incisions four times a day after surgery for 1 week. No heavy lifting over 15 lbs or any strenuous exercise for 1 wk after surgery. Walking is okay after surgery. The documentation for this note was completed by Zuleyma Lozano PA-C acting as a scribe for Susanna Pappas MD. 10/31/2022 2:05 PM. I have confirmed and edited as necessary the relevant ophthalmic history, ROS, and the neuro exam findings as obtained by others. I have seen and examined Bailey Duran Brannon. I have discussed the case and the management of this patient's care with the Resident/Fellow, if applicable. I also have reviewed and agree with the assessment and plan as stated above and agree with all of its relevant components. I, Susanna Pappas MD, personally performed the services described in this documentation. All medical record entries made by the scribe were at my direction and in my presence. I have reviewed the chart and discharge instructions (if applicable) and agree that the record reflects my personal performance and is accurate and complete. Electronically Signed: Susanna Pappas MD, October 31, 2022 2:05 PM. documented in this encounter [facility] 07-24-2022 Instructions Colby Cruz II, OD - 07/24/2022 10:08 AM EDT Assessment and Plan H52.03 Hypermetropia of both eyes (primary encounter diagnosis) H52.221 Regular astigmatism, right eye H52.4 Presbyopia Comment: Glasses power stable. Update as desired. H02.831, H02.834 Dermatochalasis of both upper eyelids Comment: Interference with superior field reported. Will return for ptosis field when ready to pursue surgery. H25.813 Combined forms of age-related cataract of both eyes Comment: Trace cataract in both eyes. Well tolerated at this time. Monitor as instructed. H43.393 Vitreous floaters of both eyes Comment: Vitreal floaters stable both eyes. Retinas flat and intact with no apparent retinal tear or traction. Monitor yearly. I have confirmed and edited as necessary the relevant ophthalmic history, ROS, and the neuro exam findings as obtained by others. I have seen and examined Bailey South. I have discussed the case and the management of this patient's care with the Resident/Fellow, if applicable. I also have reviewed and agree with the assessment and plan as stated above and agree with all of its relevant components. Colby Cruz II, OD documented in this encounter [facility] 07-24-2022 History of Presen t illness Narrative Assessment and Plan H52.03 Hypermetropia of both eyes (primary encounter diagnosis) H52.221 Regular astigmatism, right eye H52.4 Presbyopia Comment: Glasses power stable. Update as desired. H02.831, H02.834 Dermatochalasis of both upper eyelids Comment: Interference with superior field reported. Will return for ptosis field when ready to pursue surgery. H25.813 Combined forms of age-related cataract of both eyes Comment: Trace cataract in both eyes. Well tolerated at this time. Monitor as instructed. H43.393 Vitreous floaters of both eyes Comment: Vitreal floaters stable both eyes. Retinas flat and intact with no apparent retinal tear or traction. Monitor yearly. I have confirmed and edited as necessary the relevant ophthalmic history, ROS, and the neuro exam findings as obtained by others. I have seen and examined Bailey South. I have discussed the case and the management of this patient's care with the Resident/Fellow, if applicable. I also have reviewed and agree with the assessment and plan as stated above and agree with all of its relevant components. Colby Cruz II, OD documented in this encounter [facility] 01-31-2016 History of Past i llness Narrative Problem Noted Date Resolved Date Acute bacterial conjunctivitis of both eyes 01/1008/13/2016 Foreign body in conjunctival sac 09/29/2015 08/13/2016 documented as of this encounter (statuses as of 07/24/2022) [address]22-2016 History of Past illness Narrative* Problem Noted Date Resolved Date Acute bacterial conjunctivitis of both eyes 01/1008/13/2016 Foreign body in conjunctival sac 09/29/2015 08/13/2016 documented as of this encounter (statuses as of 10/31/2022) [address]22-2016 History of Past illness Narrative* Problem Noted Date Resolved Date Acute bacterial conjunctivitis of both eyes 01/1008/13/2016 Foreign body in conjunctival sac 09/29/2015 08/13/2016 documented as of this encounter (statuses as of 10/31/2022) [address]22-2016 History of Past illness Narrative* Problem Noted Date Resolved Date Acute bacterial conjunctivitis of both eyes 01/1008/13/2016 Foreign body in conjunctival sac 09/29/2015 08/13/2016 documented as of this encounter (statuses as of 11/27/2022) [address]22-2016 History of Past illness Narrative* Problem Noted Date Resolved Date Acute bacterial conjunctivitis of both eyes 01/1008/13/2016 Foreign body in conjunctival sac 09/29/2015 08/13/2016 documented as of this encounter (statuses as of 05/01/2023) [address]22-2016 History of Past illness Narrative* Problem Noted Date Diagnosed Date Resolved Date Acute bacterial conjunctivitis of both eyes 01/31/2016 08/13/2016 Foreign body in conjunctival sac 09/29/2015 08/13/2016 documented as of this encounter (statuses as of 05/24/2023) [address]22-2016 History of Past illness Narrative* Problem Noted Date Diagnosed Date Resolved Date Acute bacterial conjunctivitis of both eyes 01/31/2016 08/13/2016 Foreign body in conjunctival sac 09/29/2015 08/13/2016 documented as of this encounter (statuses as of 07/03/2023) [address]22-2016 History of Past illness Narrative* Problem Noted Date Diagnosed Date Resolved Date Acute bacterial conjunctivitis of both eyes 01/31/2016 08/13/2016 Foreign body in conjunctival sac 09/29/2015 08/13/2016 documented as of this encounter (statuses as of 07/25/2023) [facility] Hypermetropia of both eyes- Primary Hypermetropia Regular astigmatism, right eye Presbyopia Dermatochalasis of both upper eyelids Combined forms of age-related cataract of both eyes Other and combined forms of senile cataract Vitreous floaters of both eyes [facility] Diagnosis Dermatochalasis of both upper eyelids- Primary Myogenic ptosis of bilateral eyelids [facility] Diagnosis 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 Myogenic ptosis Dermatochalasis of both upper eyelids [facility]* Diagnosis Pre-operative examination- Primary Preoperative examination, unspecified Myogenic ptosis of eyelid of both eyes Myogenic ptosis Dermatochalasis of both upper eyelids [facility] Diagnosis Post-operative state- Primary Other postprocedural status [facility]* Diagnosis Onset Date Resolution Status Atrophic vaginitis acute Chest pain acute Cystocele and rectocele with incomplete uterovaginal prolapse acute Fecal incontinence acute Osteopenia chronic Encounter for routine gynecological examination noneactive [facility] Work Phone: Evaluation note* Diagnosis Post-operative state- Primary Other postprocedural status [facility] Diagnosis Onset Date Resolution Status Atrophic vaginitis acute Chest pain acute Cystocele and rectocele with incomplete uterovaginal prolapse acute Fecal incontinence acute Osteopenia chronic Encounter for routine gynecological examination noneactive Fecal incontinence acute Hemorrhoids acute [facility] Work Phone: Evaluation note* Diagnosis Hyperopia of both eyes- Primary Regular astigmatism of both eyes Regular astigmatism Presbyopia Combined forms of age-related cataract of both eyes Other and combined forms of senile cataract [facility] Diagnosis Hyperopia of both eyes- Primary Regular astigmatism of both eyes Regular astigmatism Presbyopia [facility] Diagnosis Onset Date Resolution Status Admit Date Encounter for routine gynecological examination noneactive May 132024 12:52pm [facility] Work Phone: Hospital Discharge instructionsAmbulatory Orders* General Surgery Location: None Selected [facility] Work Phone: Reason for referral (narrative)No reason for referral information [facility] Work Phone: Summary Purpose Family History Relationship Condition Age at Onset Recorded Date/T amaya brother Malignant neoplasm Unknown grandmother Diabetes mellitus Unknown Hypertension Unknown Cardiac disease Unknown mother Arthritis Unknown Relationship Condition Age at Onset Recorded Date/T amaya brother Malignant neoplasm Unknown grandmother Diabetes mellitus Unknown grandmother Hypertension Unknown Cardiac disease Unknown mother Arthritis Unknown daughter Rheumatoid arthritis Unknown Advance Directives Advance Directive Response Recorded Date/ Time Living Will No October 20 019 2:34pm Power of Pens And Pencils Dipper No October 20, 2019 2:34pm Medications Administered Section Active Administered Medications - up to 3 most recent administrations Medication Order MAR Action Action Date Dose Rate Site tropicamide 0.5 % 1 Drop (MYDRIACYL) 1 Drop, BOTH EYES, DIRECTED, Starting on 07/24/22 at 1030, Until Sat07/24/22 at 2229, Administer for dilation Given 07/24/2022 10:30 AM EDT 1 Drop Active Administered Medications - up to 3 most recent administrations Medication Order MAR Action Action Date Dose Rate Site tropicamide 0.5 % 1 Drop (MYDRIACYL) 1 Drop, BOTH EYES, DIRECTED, Starting on Marissa 07/25/23 at 0930, Until Marissa 07/25/23 at 2129, Administer for dilation Given 07/25/2023 9:30 AM EDT 1 Drop Chief Complaint and Reason for Visit Chief Complaint SCREENING Annual ([employer]) Reason for Visit Atrophic vaginitis Chest pain Cystocele and rectocele with incomplete uterovaginal prolapse Fecal incontinence Osteopenia Encounter for routine gynecological examination Chief Complaint SCREENING Annual ([employer]) OSTEO FECAL INCONTINENCE Reason for Visit Atrophic vaginitis Chest pain Cystocele and rectocele with incomplete uterovaginal prolapse Fecal incontinence Osteopenia Encounter for routine gynecological examination Fecal incontinence Hemorrhoids Chief Complaint Admit Date screening for breast cancer June 09, 025 12:08pm Annual ([employer]) June 09, 2025 12:5 2pm Reason for Visit Admit Date Encounter for routine gynecological exam ination June 09, 2025 12:52pm Additional Source Comments INFORMATION SOURCE (unrecogn ized section and content) DATE CREATED AUTHOR 12/15/2020 Lukas Chou [facility] DATE CREATED AUTHOR AUTHOR'S ORGANIZ ATION 07/20/2024 [facility] DATE CREATED AUTHOR AUTHOR'S ORGANJUYD ATION 06/08/2025 [facility] Source Comments (unrecognize d section and content) In the event this informatio n is protected by the Federal Confidentiality of Alcohol and Drug Abuse Patient Records regulations: The Federal rules restrict any use of the information to criminally investigate or prosecute any alcohol or drug abuse patient.[facility] the event this information is protected by the Federal Confidentiality of Alcohol and Drug Abuse Patient Records regulations: The Federal rules restrict any use of the information to criminally investigate or prosecute any alcohol or drug abuse patient.[facility] the event this information is protected by the Federal Confidentiality of Alcohol and Drug Abuse Patient Records regulations: The Federal rules restrict any use of the information to criminally investigate or prosecute any alcohol or drug abuse patient.[facility] the event this information is protected by the Federal Confidentiality of Alcohol and Drug Abuse Patient Records regulations: The Federal rules restrict any use of the information to criminally investigate or prosecute any alcohol or drug abuse patient.[facility] the event this information is protected by the Federal Confidentiality of Alcohol and Drug Abuse Patient Records regulations: The Federal rules restrict any use of the information to criminally investigate or prosecute any alcohol or drug abuse patient.[facility] the event this information is protected by the Federal Confidentiality of Alcohol and Drug Abuse Patient Records regulations: The Federal rules restrict any use of the information to criminally investigate or prosecute any alcohol or drug abuse patient.[facility] the event this information is protected by the Federal Confidentiality of Alcohol and Drug Abuse Patient Records regulations: The Federal rules restrict any use of the information to criminally investigate or prosecute any alcohol or drug abuse patient.[facility] the event this information is protected by the Federal Confidentiality of Alcohol and Drug Abuse Patient Records regulations: The Federal rules restrict any use of the information to criminally investigate or prosecute any alcohol or drug abuse patient.[facility] the event this information is protected by the Federal Confidentiality of Alcohol and Drug Abuse Patient Records regulations: The Federal rules restrict any use of the information to criminally investigate or prosecute any alcohol or drug abuse patient.[facility] Reason for Visit (unrecogniz ed section and content) Reason Comments Yearly Exam Contact lens evaluation Reason Comments Dermatochalasis Evaluation Reason Comments Schedule Surgery Reason Comments Anesthesia Consult Reason Comments Post Op Reason Comments s/p bul bleph on Care Teams (unrecognized sec tion and content) Guest Relations Agent Relationship Specialty Start Date End Date Kathryn Darby MD PCP - General Internal Medicine 01/04/20 Guest Relations Agent Relationship Specialty Start Date End Date Kathryn Darby MD PCP - General Internal Medicine 01/04/20 Guest Relations Agent Relationship Specialty Start Date End Date Kathryn Darby MD PCP - General Internal Medicine 01/04/20 Guest Relations Agent Relationship Specialty Start Date End Date Kathryn Darby MD PCP - General Internal Medicine 01/04/20 Guest Relations Agent Relationship Specialty Start Date End Date Kathryn Darby MD PCP - General Internal Medicine 01/04/20 Guest Relations Agent Relationship Specialty Start Date End Date Kathryn Darby MD PCP - General Internal Medicine 01/04/20 Team Status: Active Member Role Status Dates Dr. Kathryn Darby MD Family Provider Active Dr. Kathryn Darby MD Primary Care Provider Active Team Status: Inactive Member Role Status Dates Dr. Kathryn Darby MD Primary Care Provider, Refer ring Provider Active Janice Estrada LOAD OUT PERSON, LOAD OUT PERSON-C Attending Provider Active Team Status: Active Member Role Status Dates Dr. Kathryn Darby MD Primary Care Provider Active Janice Estrada LOAD OUT PERSON, LOAD OUT PERSON-C Attending Provider, Referring Provider Active Team Status: Inactive Member Role Status Dates Dr. Kathryn Darby MD Primary Care Provider Active Janice Estrada LOAD OUT PERSON, LOAD OUT PERSON-C Attending Provider, Referring Provider Active Guest Relations Agent Relationship Specialty Start Date End Date Kathryn Darby MD PCP - General Internal Medicine 01/04/20 Team Status: Inactive Member Role Status Dates Dr. Kathryn Darby MD Primary Care Provider, Refer ring Provider Active Dr. Carina Diego MD Attending Provider Active Guest Relations Agent Relationship Specialty Start Date End Date Kathryn Darby MD PCP - General Internal Medicine 01/04/20 Guest Relations Agent Relationship Specialty Start Date End Date Kathryn Darby MD PCP - General Internal Medicine 01/04/20 Team Status: Active Member Role/Relationship Status Dates Dr. Geetha Simpson MD Primary Care Provider Active Team Status: Active Member Role/Relationship Status Dates Dr. Geetha Simpson MD Primary Care Provider Active Start: June 09, 2025 Janice Estrada LOAD OUT PERSON, LOAD OUT PERSON-C Attending Provider Active Start: June 09, 2025 Janice Estrada LOAD OUT PERSON, LOAD OUT PERSON-C Referring Provider Active Start: June 09, 2025 Team Status: Inactive Member Role/Relationship Status Dates Dr. Geetha Simpson MD Primary Care Provider Active Start: June 09, 2025 End: June 09, 2025 Dr. Geetha Simpson MD Referring Provider Active Start: June 09, 2025 End: June 09, 2025 Janice Natalie LOAD OUT PERSON, LOAD OUT PERSON-C Attending Provider Active Start: June 09, 2025 End: June 09, 2025 Goals (unrecognized section and content) Goals may be documented in a n alternate sectionGoals may be documented in an alternate sectionGoals may be documented in an alternate sectionGoals may be documented in an alternate section FOR RECORDS PERTAINING TO PATIENTS WHO ARE OR HAVE BEEN ENROLLED IN A CHEMICAL DEPENDENCY/SUBSTANCEABUSE PROGRAM, SOME INFORMATION MAY BE OMITTED. This clinical summary was aggregated from multiple sources. Caution should be exercised in using it in the provision of clinical care. This summary normalizes information from multiple sources, and as a consequence, information in this document may materially change the coding, format and clinical context of patient data. In addition, data may be omitted in some cases. CLINICAL DECISIONS SHOULD BE BASED ON THE PRIMARY CLINICAL RECORDS. [facility] [employer] [facility]. provides no warranty or guarantee of the accuracy or completeness of information in this document.
== END | disposition home or self-care (01) ==
LOC: OPBI 12:09
PROVIDERS: PCP Internal Medicine; Referring Provider Nurse Practitioner Women's Health; Visit Provider Nurse Practitioner Women's Health
DX: Z12.31 Encounter for screening mammogram for malignant neoplasm of breast (principal)
CPT/HCPCS: 77063; 77067

== ENCOUNTER → 2025-08-10 | Outpatient (CLI) | payer MEDICARE, SELFPAY ==
--- OUTSIDE RECORDS SUMMARY | 2025-07-26 08:08 | XMS RPT_ITS ---
Author Name Auto Generated Organization [facility] Care Team Providers [facility] [employer] Name Role Phone PHILOMENA TAY Primary Care Unavailable MERRY HUMPHREYS Attending Unavailabl e PROBLEMS DATE TYPE CONDITION / CODE ATTENDING STATUS [facility] 09/05/2015 Active Hyperopia of bot h eyes / H52.03(ICD-10) MERRY HUMPHREYS Active [facility] 07/14/2014 Active Presbyopia / H52.4(ICD-10) MERRY HUMPHREYS Active [facility] 07/14/2014 Active Regular astigmat ism of right eye / H52.221(ICD-10) MERRY HUMPHREYS Active [facility] PROCEDURES No Procedure Records Found RESULTS PROGRESS Observed: 07/26/2025 8:41 AM Status: COMPLETED Source: [facility] HNO ID: [id number] Author: MERRY HUMPHREYS OD Service: ? Author Type: Range Conservationist Type: Progress Notes Filed: 07/26/2025 08:44 Note Text: ASSESSMENT/PLAN: 1. Hyperopia of both eyes - ICD9: 367.0, ICD10: H52.03 (primary diagnosis) 2. Regular astigmatism of right eye - ICD9: 367.21, ICD10: H52.221 3. Presbyopia - ICD9: 367.4, ICD10: H52.4 Continue to wear her glasses as desired. Continue to to wear her contact lenses on a daily basis and replaced with each use. Continue to monitor her ocular health Recommended yearly exams. Merry Humphreys OD I have confirmed and edited as necessary the relevant ophthalmic history, ROS, and the neuro exam findings as obtained by others. ALLERGIES DATE TYPE / CODE NAME / CODE REACTION SEVERITY SOURCE Drug Class/[id number](SNO MED CT) NO KNOWN ALLERGIES [facility] ENCOUNTERS ADMIT/DISCHARGE ACCOUNT NUMBER ADMITTING ENCOUNTER CLASS LOC ATION SOURCE 07/26/2025/ 5 [id number] [facility] PAYERS ENCOUNTER GUARANTOR PAYER SUBSCRIBER SOURCE 07/26/2025 Primary Insurance:[employer] Number: [id number] Date:[id number] Name:Victor Manuel YOUNGPDOB: [id number] [place] [address] [facility]
--- NOTE | 2025-08-10 07:03 | BD_ITS ---
PROCEDURE: DEXA BONE DENSITY STUDY 08/10/2025 REASON FOR EXAM: OSTEOPENIA F, age 70 y/o . Postmenopausal screening. TECHNIQUE: Procedure Code: BDDBD Modality: DX Procedure: DEXA BONE DENSITY STUDY COMPARISON: 2022 2019 FINDINGS: BMD and T-SCORES Lumbar spine: 0.875 g/cm2, T-score -1.6 Levels: L1 through L4 Change from prior: Decrease of 5.2%. Left femoral neck: 0.592 g/cm2, T-score -2.3 Femoral neck comparison data not recommended for monitoring change. Prior T-score Left total hip: 0.747 g/cm2, T-score -1.6 Change from prior: Decrease of 1.4%. Right femoral neck: 0.552 g/cm2, T-score -2.7 Femoral neck comparison data not recommended for monitoring change. Prior T-score Right total hip: 0.703 g/cm2, T-score -2.0 Change from prior: Increase of 0.1%. The World Health Organization has defined the following categories based on bone density: Normal bone density: T-score equal to or greater than -1.0 Osteopenia: T-score between -1.0 and -2.5 Osteoporosis: T-score equal to or less than -2.5 FRAX (or Comparable) Fracture Risk Assessment: 10 Year Probability of Fracture: Major Osteoporotic Fracture: 23% Hip Fracture: 5.7% (Note: FRAX is not to be reported in setting of normal range bone density, osteoporosis on DEXA, known history of osteoporosis, prior osteoporotic hip or vertebral fracture, or for any patient undergoing pharmacological treatment for bone loss.) The National Osteoporosis Foundation (NOF) recommends pharmacological treatment for patients with a FRAX 10-year risk of 3% or higher for a hip fracture, or 20% or higher for a major osteoporotic fracture, to prevent osteoporosis and reduce fracture risk. The patient does meet the pharmacological treatment recommendations for prevention of osteoporosis. BD/Dexa Bone Density Study IMPRESSION: OSTEOPOROSIS. Recommend follow-up as clinically warranted. Reading Location: [id number]
== END | disposition home or self-care (01) ==
PROVIDERS: PCP Internal Medicine; Referring Provider Nurse Practitioner Women's Health; Visit Provider Nurse Practitioner Women's Health
DX: M85.89 Other specified disorders of bone density and structure, multiple sites (principal); Z78.0 Asymptomatic menopausal state
CPT/HCPCS: 77080